=== PATIENT | male | born 1950 | race Caucasian/White ===

== ENCOUNTER 2019-04-18 21:40 | Inpatient (IN) ==
--- NOTE | 2019-04-18 22:10 | EKG Report ---
Test Performed on : 04/18/2019 10:00:37 PM Test Reason : sob Blood Pressure : / mmHG Vent. Rate : 066 BPM Atrial Rate : 267 BPM P-R Int : 000 ms QRS Dur : 098 ms QT Int : 442 ms P-R-T Axes : 000 032 103 degrees QTc Int : 463 ms Accelerated Junctional rhythm. Nonspecific ST and T wave abnormality Abnormal ECG When compared with ECG of 14-NOV-2015 11:56, Junctional rhythm. has replaced Sinus rhythm. Vent. rate has decreased BY 33 BPM Non-specific change in ST segment in Anterior leads Nonspecific T wave abnormality no longer evident in Inferior leads T wave inversion less evident in Lateral leads Unconfirmed Result
[2019-04-18] MEDS ORDERED: NS 1,000 ML IV ONE (22:30)
[2019-04-18] MEDS ORDERED: DILAUDID IV ONE ×2 (22:31→23:37)
[2019-04-18] MEDS ORDERED: ZOFRAN IV ONE (22:31)
[2019-04-18 22:45] LABS: BASO# 0.02 X1000 (0.0-0.2); BASO% 0.2 % (0.0-0.8); EOS# 0.03 X1000 (0.0-0.7); EOS% 0.3 % (0.0-10.0); HEMATOCRIT 35.4 % (42.0-52.0); HEMOGLOBIN 11.6 g/dL (14.0-18.0); IMM GRAN# 0.06 X1000 (0.0-0.04); IMM GRAN% 0.6 % (0.0-0.5); LYMPH# 0.74 X1000 (1.2-3.4); MCHC 32.8 g/dL (33-37); MCV 97.8 FL (81-99); MONO% 4.8 % (1.7-9.3); MPV 11.6 FL (7.4-10.4); NEUT# 9.16 X1000 (1.4-6.5); NEUT% 87.1 % (42.2-75.2); PLT 244 X1000 (130-400); RBC 3.62 XMIL (4.7-6.1); RDW 13.9 % (11.5-14.5); WBC 10.51 X1000 (4.8-10.8)
[2019-04-18 22:52] LABS: INR 0.99; PROTIME 13.2 Seconds (11.0-16.0)
[2019-04-18 22:53] LABS: PTT 30.8 Seconds (22.3-41.8)
--- NOTE | 2019-04-18 22:58 | PROVIDER DOCUMENTATION ---
HPI-General Adult - General Chief Complaint: Abdominal Pain Stated Complaint: ABDOMINAL PAIN AND SOB Time Seen by Provider: 04/18/19 21:45 Source: patient, family Allergies/Adverse Reactions: Patient Allergies Allergy/AdvReac Type Severity Reaction Status Date / Time metformin Allergy Unknown SWELLING Verified 04/18/19 22:16 rosuvastatin calcium * Allergy Unknown SWELLING Verified 04/18/19 22:16 [From Crestor] morphine AdvReac HEADACHE Verified 04/18/19 22:16 nitroglycerin AdvReac HEADACHE Verified 04/18/19 22:16 Home Medications: Home Medication List Medication Instructions Recorded Confirmed Last Taken Type Clopidogrel [Plavix] 75 mg PO DAILY 01/23/12 04/18/19 04/18/19 History Aspirin 81 mg PO DAILY #0 chewtab 06/27/15 04/18/19 04/18/19 Rx Insulin Lispro [Humalog Kwikpen See Protocol SQ AC + HS #90 06/27/15 04/18/19 04/18/19 Rx U-100] insuln.pen ATORVAstatin [Lipitor] 40 mg PO QHS #0 tablet 09/19/15 04/18/19 04/18/19 Rx Insulin Glargine [Lantus] 30 unit SUBQ BID 09/21/16 04/18/19 04/18/19 History Losartan/Hydrochlorothiazide 1 each PO DAILY 09/21/16 04/18/19 04/18/19 History [Hyzaar 100-25 Tablet] Gabapentin 300 mg PO 4XDAY 11/11/16 04/18/19 04/18/19 History Levothyroxine [Synthroid] 50 microgm PO DAILY 12/02/16 04/18/19 04/18/19 History Cyanocobalamin (Vitamin B-12) 1,000 mcg PO DAILY 08/29/17 04/18/19 04/18/19 History [Vitamin B12] Gabapentin 100 mg PO 4XDAY 08/29/17 04/18/19 04/18/19 History Tamsulosin [Flomax] 0.4 mg PO DAILY 08/29/17 04/18/19 04/18/19 History Bupropion X.l. [Wellbutrin Xl] 450 mg PO DAILY tablet 09/06/17 04/18/19 04/18/19 Rx Folic Acid 1 mg PO DAILY tablet 09/06/17 04/18/19 04/18/19 Rx Metoprolol Succinate E.r. [Toprol 50 mg PO DAILY tablet 09/06/17 04/18/19 04/18/19 Rx Xl] Amlodipine [Norvasc] 5 mg PO BID 04/18/19 04/18/19 04/18/19 History Docusate Sodium [Colace Clear] 50 mg PO QHS 04/18/19 04/18/19 04/18/19 History Isosorbide Mononitrate E.r. [Imdur] 20 mg PO QHS 04/18/19 04/18/19 04/18/19 History Omeprazole [Prilosec] 30 mg PO DAILY 04/18/19 04/18/19 04/18/19 History - History of Present Illness -Gen Adult Nature of Presenting Problems: Presents to the with complaints of abdominal pain, distension and bruising that started acutely this morning. Patient stated that he coughed and he felt something pop and since then he continued to have worsening pain, swelling and noticed the bruising. He does take plavix and ASA for extensive cardiac hx. Per family and patient he additionally has been complaining of worsening weakness and has been having a cough. He went to his Research And Development Researcher's office this week and was put on a zpack and given a dose of solumedrol in addition to his already chronic prednisone he takes. 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 They also noted that his sugars were higher. He denied any fevers. Review of Systems - Adult - REVIEW OF SYSTEMS - ADULT Constitutional: reports: see HPI Eyes: reports: no symptoms reported Ears, Nose, Mouth & Throat: reports: no symptoms reported Cardiovascular: reports: no symptoms reported Respiratory: reports: see HPI, cough, shortness of breath Gastrointestinal: reports: see HPI, abdominal pain. denies: constipation, diarrhea, nausea, vomiting Genitourinary: reports: see HPI, flank pain Musculoskeletal: reports: no symptoms reported Integumentary: reports: no symptoms reported Neurological: reports: no symptoms reported Psychiatric: reports: no symptoms reported Endocrine: reports: no symptoms reported Hematologic/Lymphatic: reports: no symptoms reported Allergic/Immunologic: reports: no symptoms reported All Other Systems: Reviewed and Negative Past History - Adult - PAST MEDICAL HISTORY-ADULT Review of Records: reports: Old Records Reviewed Major Childhood Illnesses: reports: denies history Cardiovascular: reports: cardiac disease, HTN, hyperlipidemia, ND Respiratory: reports: asthma, COPD, sleep apnea Gastrointestinal: reports: GERD Obstetrical/Gynecological: reports: denies history Genitourinary: reports: denies history Musculoskeletal: reports: denies history Neurological: reports: denies history Endocrine/Immune: reports: Diabetes Other Conditions: reports: denies history - PRIOR SURGERIES/PROCEDURES Surgical/Procedure History: reports: CABG, cardiac stent - IMMUNIZATION STATUS Childhood Immunizations: See Nurse Assessment Flu Vaccine: See Nurse Assessment - FAMILY HISTORY Family History: reviewed, not pertinent Physical Exam-General - PHYSICAL EXAM-ADULT Initial Vital Signs Reviewed: Yes - CONSTITUTIONAL General Appearance: appears well, alert, mild distress (uncomfortable appearing) - HEAD, EARS, NOSE, MOUTH & THROAT HENMT: normocephalic/atraumatic - NECK Neck: supple, normal inspection - RESPIRATORY Respiratory: chest non-tender, no respiratory distress, no accessory muscle use, decreased breath sounds (bilaterally). negative: accessory muscle use, crackles, wheezing - CARDIOVASCULAR Cardiovascular: normal peripheral pulses, regular rate, rhythm, no murmur - GASTROINTESTINAL (ABDOMEN) Abdominal Exam: normal bowel sounds, distended, other (diffuse ecchymosis, moderately tender, areas soft to touch and right flank/RLQ more firm to touch). negative: hernia - MUSCULOSKELETAL Back Exam: normal inspection Extremity: other (bilateral AKA) - SKIN Integumentary: normal color, warm/dry - NEUROLOGIC Neurologic: grossly normal - PSYCHIATRIC Psych/Mental Status: normal mood/affect, oriented x 3 Progress - PLAN OF CARE/RESULTS Progress/Plan/Lab Results: Vital Signs - 8 hr 04/18/19 21:45 Temperature 97.5 F L Pulse Rate 67 Respiratory Rate 18 Blood Pressure 185/72 O2 Sat by Pulse Oximetry 100 Laboratory Results - last 24 hr 04/18/19 04/18/19 22:05 22:05 WBC 10.51 RBC 3.62 L Hgb 11.6 L Hct 35.4 L MCV 97.8 MCH 32.0 H MCHC 32.8 L RDW Std Deviation 13.9 Plt Count 244 MPV 11.6 H Immature Gran % (Auto) 0.6 H Neut % (Auto) 87.1 H Lymph % (Auto) 7.0 L [place] % (Auto) 4.8 Eos % (Auto) 0.3 Baso % (Auto) 0.2 Immature Gran # (Auto) 0.06 H Neut # (Auto) 9.16 H Lymph # (Auto) 0.74 L [place] # (Auto) 0.50 Eos # (Auto) 0.03 Baso # (Auto) 0.02 PT 13.2 INR 0.99 PTT (Actin FS) 30.8 Orders Category Date Time Status Cardiac Monitoring DIRECTED Care 04/18/19 22:29 Active Finger Stick Blood Sugar (ED) DIRECTED Care 04/18/19 21:54 Active Nursing- Obtain EKG ONCE Care 04/18/19 22:29 Active CHEST-2 VIEWS [RAD] Stat Exams 04/18/19 22:[address] THORAX/ABD/PELVIS W/CON [CT] Stat Exams 04/18/19 22:30 Taken CBC WITH DIFF [HEME] Stat Lab 04/18/19 22:05 Completed COMPREHENSIVE METABOLIC PANEL [CHEM] Stat Lab 04/18/19 22:05 Received LACTATE, PLASMA [CHEM] Stat Lab 04/18/19 22:31 Uncollected LIPASE [CHEM] Stat Lab 04/18/19 22:05 Received PROTIME WITH INR [COAG] Stat Lab 04/18/19 22:05 Completed PTT [COAG] Stat Lab 04/18/19 22:05 Completed TROPONIN T HIGH SENSITIVITY Stat Lab 04/18/19 22:05 Received URINALYSIS W/POSS RFLX CULT [URINALYSIS] Stat Lab 04/18/19 22:54 Uncollected 0.9% Sodium Chloride Inj [Ns] 1,000 ml Med 04/18/19 22:30 Active IV 100 mls/hr Hydromorphone [Dilaudid] Med 04/18/19 22:31 Discontinued 1 mg IV NOW ONE Ondansetron [Zofran] Med 04/18/19 22:31 Discontinued 4 mg IV NOW ONE EKG [EKG] Stat Ther 04/18/19 21:54 Draft EKG [EKG] Stat Ther 04/18/19 22:29 Ordered Spoke to radiology who called critical CT showing rectus hematoma with acute extravasation but no acute bleeding in the abdomen. SPoke to Dr Sanders, general surgeon refrigeration engineering teacher who recommended trending H/H, hold anticoagulation. Result Diagrams: 04/19/19 03:48 01/22/20 22:05 - EKG 1 Time of EKG reading by physician:: 22:07 EKG Read and Signed by:: Kathryn Dan EKG Interpretation (*Must complete 3 of following elements*): Abnormal Rate: 66 Rhythm: NSR QRS: normal IA Interval: normal ST Wave: non-specific ST changes - CT/MRI 1 CT Study: Abdomen (right rectus hemtoma with bright contrast within the muscle consistent with acute extravasation, no acute intraperitoneal and retroperitoneal hemorrhage, no acute intrabd process, low density adrenal adenoma), Thorax (subtle airspace disease in the right middle lobe may represent atelectasis or PNA) - CONSULTS/PCP/HOSPITALIST Notification #1 *Consult/PCP/Hospitalist*: Dr Sanders Time Discussed: 23:45 Consult Disposition: other (Admit to hospitalist, will see patient in consult. NPO, and rpt H/H q6h, hold anticoagulation) #2 Consult: Dr Wagner Time Discussed: 23:55 Consult Disposition: Admit Departure - Departure Date of Disposition Decision: 04/18/19 Time of Disposition Decision: 23:45 DIAGNOSIS: Abdominal pain, Uncontrolled diabetes mellitus, Pneumonia Rectus sheath hematoma Qualifiers: Encounter type: initial encounter Qualified Code(s): S30.1XXA - Contusion of abdominal wall, initial encounter Disposition: ADMITTED INPATIENT 09 Certified Medical Emergency: Emergent Condition: Serious - Critical Care Note This patient required my direct & personal management of CC.: No Attestation - Physician/ RODRIGUEZ Attestation Patient care was provided by Advanced Practice Provider:: No The physician spent face to face time with patient:: Yes Advanced Practice Provider documentation review:: Supervising physician onsite and consulted in the evaluation and care of this patient. The physician did have a face to face encounter with the patient.
[2019-04-18 23:37] LABS: ALB/GLOB RATIO 1.8; ALBUMIN 3.6 g/dL (3.5-5.0); CALCIUM 9.1 mg/dL (8.8-10.2); CREATININE 1.2 mg/dL (0.7-1.2); POTASSIUM 4.8 mmol/L (3.5-5.1); TOTAL PROTEIN 5.6 g/dL (6.3-8.3)
[2019-04-18 23:54] LABS: TOTAL BILIRUBIN 0.29 mg/dL (0.20-1.00)
[2019-04-18] MEDS ORDERED: HUMULIN R IV ONE (23:57)
[2019-04-19] MEDS ORDERED: VANCOMYCIN 1 GM/NS 1 GM/250 ML IVPB IV SCH (00:30)
[2019-04-19 00:36] LABS: URINE SOURCE CLEAN CATCH
[2019-04-19 00:38] LABS: BILIRUBIN URINE NEGATIVE (NEGATIVE); BLOOD URINE NEGATIVE (NEGATIVE); COLOR YELLOW; GLUCOSE URINE >1000 mg/dL (NEGATIVE); KETONE URINE NEGATIVE (NEGATIVE); LEUKOCYTES URINE NEGATIVE (NEGATIVE); NITRITE URINE NEGATIVE (NEGATIVE); PROTEIN URINE 30 mg/dL (NEGATIVE); TURBIDITY URINE CLEAR (CLEAR); UR EPITHELIAL CELLS <10 /HPF (<10); URINE BACTERIA NEGATIVE /HPF; URINE RBC <10 /HPF (<10); URINE WBC <10 /HPF (<10); UROBILINOGEN URINE NORMAL (NORMAL)
[2019-04-19 01:05] LABS: SP GRAVITY URINE 1.015
[2019-04-19] MEDS: MAXIPIME 1 GM in NS 50 ML IV SCH ×3 (02:08→23:28)
--- NOTE | 2019-04-19 02:32 | HISTORY AND PHYSICAL ---
PRIMARY CARE PHYSICIAN: Ty Forrest MD. REASON FOR ADMISSION: Abdominal pain overnight. HISTORY OF PRESENT ILLNESS: Mr. Mark Martinez is a 68-year-old white male with past medical history of ischemic heart disease status post CABG and several stents, peripheral arterial disease status post bilateral endarterectomy, and subsequent bilateral AKA, uncontrolled type 2 diabetes with neuropathy, COPD, right-sided heart failure, achalasia, and history of tonsillar squamous cell cancer. He also has a recent history of OPDIVO induced pemphigoid skin disease for which the patient takes chronic doxycycline and steroids. The patient comes in today because he has been dealing with a dry cough and had seen Dr. Wolfe for this 3 days ago and was put on Zithromax and given 30 mg extra dose of steroids, Solu-Medrol. He reports that the cough has been protracted, nonproductive, but around 9 p.m. yesterday, he noticed that while he was having a round of his usual coughing spells, he felt a very sharp pop in the right upper quadrant area of his abdomen. He said the pain was so intense, it was doubled, that he had to catch himself. He then shortly noticed that there was a bulge forming in the right upper quadrant area, and subsequently he noticed that there was some bruising around that site. A few hours later he noticed bruising around his belt line area and his suprapubic area. He said the pain became more intense and was radiating to his back. The patient denies any bleeding from any orifice. He denies any chest pain or worsening of breathing. No antecedent polyuria or polydipsia. No focal neurological complaints. No other additional GI complaints. He says when he moves or coughs the pain is worse, when he keeps still the pain is better. He says the pain has improved since he received IV opioids in the ER. REVIEW OF SYSTEMS: Twelve system review was done, positive findings per the HPI. ALLERGIES: Crestor, amitriptyline, iron, metformin, questionable allergy to Neurontin, morphine when only taking with nitroglycerin. FAMILY HISTORY: Notable for coronary artery disease, type 2 diabetes in first- degree relatives. SOCIAL HISTORY: He smokes 1 pack a day. No alcohol or illicit drug use. SURGICAL HISTORY: Other than the aforementioned AKA, head and neck surgery, and CABG, stents, the patient has had cataract surgery. LABORATORY DATA: White count is 10,000, hemoglobin and hematocrit 11 and 35, platelets 244,000, with 87% neutrophils. Glucose is 511, sodium 134, BUN 26, creatinine 1.2. ProBNP 7000. Troponin is only 34. Lactate is 2.7. PTT is normal. CT of abdomen confirms right rectal sheath hematoma, and probable right middle lobe pneumonia versus atelectasis. PHYSICAL EXAMINATION: VITAL SIGNS: Blood pressure 160/67, heart rate 69, respirations 15, temperature is 97.7 degrees, he is 96% on room air. GENERAL: A chronically ill elderly male. He is in mild distress from his abdominal pain. He is alert and oriented to person and time with normal mood and affect. HEENT: Head is normocephalic, atraumatic. Eyes, JOSSELIN, EOMI. He is anicteric. Not pale. ENT, oropharynx exam is grossly normal. The patient is mildly pale for admission. Intraoral exam is grossly unremarkable. Some cyanosis. NECK: Supple. No visual JVD or thyromegaly noted. Carotid bruit was not checked. CHEST: Decreased entry in both lung arzate. Expiratory wheezes. CARDIOVASCULAR: First and second heart sounds heard. No gallops, murmurs or rubs. Rhythm is regular. ABDOMEN: Slightly protuberant, soft except in the right upper quadrant where there is an area of induration and slight bulging with a small area of ecchymosis. This area measures about 8 x 10 cm and is exquisitely tender. There is also bruising around his right belt line area and suprapubic area. There is mild diffuse tenderness in other areas, but no rebound or guarding appreciated. Bowel sounds are hypoactive. No mass or megaly could be appreciated. EXTREMITIES: The patient has bilateral AKA stumps with no evidence of skin breakdown. Distal pulses of his upper extremities are intact. Regular symmetrical. NEUROLOGICAL: No gross focal deficits. SKIN: Intact. No breakdown, lesion, erythema. Skin exam is grossly normal. ASSESSMENT: At this time is: 1. Rectus sheath hematoma. 2. Probable pneumonia. 3. Coronary artery disease. 4. Peripheral arterial disease. 5. Type 2 diabetes, uncontrolled. 6. Hypertension. 7. Bullous pemphigoid immunotherapy induced. 8. Chronic obstructive pulmonary disease.. 9. Hypertensive heart disease. PLAN: The patient does obviously have a clear-cut pneumonia; however, we will give the Maxipime to cover for enteric gram-negative pathogens, i.e. Pseudomonas. This is being that the patient has been exposed to doxycycline for prolonged periods which will cover atypicals and the usual community-acquired pathogens, and even some degree MRSA. We will start the patient's antitussive agents so as not to cause further expansion of the hematoma. We will hold antiplatelet therapy for a short while especially Plavix. Aspirin may be reintroduced at a suitable date with the stability of the hematoma. We will start the patient on IV fluid resuscitation in the interim, and consider CT scan of the abdomen much later in the day to determine if there is stability of the hematoma. Dr. Sanders was notified and will see the patient later today. We will also slowly increased the dose of the patient's Lantus, and start the patient on sliding scale. We may consider doing serial H Hs, but I will out defer to Dr. Forrest as to how frequent he wants to do this. cc: MD Ty Green MD MTDD
[2019-04-19] MEDS ORDERED: NS 1,000 ML IV SCH (03:34)
[2019-04-19] MEDS ORDERED: HYDROMET LIQUID PO ONE (03:34)
[2019-04-19] MEDS ORDERED: HYDROMET LIQUID PO PRN (03:34)
[2019-04-19] MEDS ORDERED: TYLENOL PO PRN (03:34)
[2019-04-19] MEDS: DILAUDID IV PRN ×3 (04:07→16:30)
[2019-04-19 04:09] LABS: HEMATOCRIT 27.8 % (42.0-52.0)
--- NOTE | 2019-04-19 05:21 | EKG Report ---
Test Performed on : 04/19/2019 05:10:56 AM Test Reason : abd pain Blood Pressure : / mmHG Vent. Rate : 053 BPM Atrial Rate : 053 BPM P-R Int : 152 ms QRS Dur : 096 ms QT Int : 486 ms P-R-T Axes : 064 031 101 degrees QTc Int : [address] & T wave abnormality, consider lateral ischemia Abnormal ECG When compared with ECG of 18-APR-2019 22:00, (Unconfirmed) Sinus rhythm. has replaced Junctional rhythm. Confirmed by Parveen JUAREZ, Sae Mi ([id number]) on 04/23/2019 5:52:52 PM
[2019-04-19 07:24] LABS: BASO# 0.01 X1000 (0.0-0.2); BASO% 0.1 % (0.0-0.8); EOS# 0.18 X1000 (0.0-0.7); EOS% 1.7 % (0.0-10.0); HEMATOCRIT 27.8 % (42.0-52.0); HEMOGLOBIN 8.9 g/dL (14.0-18.0); IMM GRAN# 0.08 X1000 (0.0-0.04); IMM GRAN% 0.8 % (0.0-0.5); LYMPH# 1.16 X1000 (1.2-3.4); LYMPH% 11.2 % (20.5-51.1); MCH 31.6 PG (27-31); MCV 98.6 FL (81-99); MONO# 0.72 X1000 (0.11-0.59); MONO% 6.9 % (1.7-9.3); MPV 11.7 FL (7.4-10.4); NEUT# 8.24 X1000 (1.4-6.5); NEUT% 79.3 % (42.2-75.2); PLT 196 X1000 (130-400); RBC 2.82 XMIL (4.7-6.1); RDW 13.8 % (11.5-14.5); WBC 10.39 X1000 (4.8-10.8)
[2019-04-19] MEDS: HUMALOG SUBQ SCH ×4 (07:48→21:22)
--- NOTE | 2019-04-19 07:49 | Diag Imaging Result Doc PS360 ---
EXAM: CT THORAX/ABD/PELVIS W/CON HISTORY: abdominal distention, ecchymoses, pain/tenderness TECHNIQUE: 1. CT chest with intravenous contrast 2. CT abdomen and pelvis with intravenous contrast COMPARISON: Abdomen and pelvis compared to 01/21/2017 FINDINGS: Chest: There are sternal wires. No cardiomegaly. No pleural effusions. No aortic aneurysm or dissection. Prominent atherosclerosis. No enlarged lymph nodes. No central pulmonary emboli. No consolidation. No bronchiectasis. No significant infiltrates. Abdomen and pelvis: The gallbladder is contracted. No calcified stones. Mild fatty infiltration of the liver. No splenomegaly. Normal pancreas and right adrenal gland. Stable 2.5 cm left adrenal nodule. There are bilateral small renal cysts in addition to a 5.0 cm left renal cyst. No hydronephrosis. No aortic aneurysm. Prominent atherosclerosis. No bowel obstruction. There is stool throughout the colon. No inflammation about the cecum. No abscess. The urinary bladder is distended and normal. Prostate is not enlarged. There is a lower abdominal right rectus hematoma measuring at least 4.1 x 5.7 x 13.2 cm. There is active extravasation within this. IMPRESSION: Chest: No acute abnormality Abdomen and pelvis: 1. Large right rectus muscle hematoma with acute extravasation. 4. Constipation 3. Renal cysts 4. Severe atherosclerosis 5. Mild fatty infiltration of the liver A preliminary report was given at 11:31 PM on 04/18/2019 This exam was performed using automated exposure control, adjustment of mA or kV according to patient size, and/or use of iterative reconstruction technique. Electronically signed by Danial Grace 04/19/2019 7:46 AM
[2019-04-19] MEDS: NORVASC PO SCH ×2 (08:17→21:21)
[2019-04-19] MEDS: HYDROCHLOROTHIAZIDE PO SCH (08:17)
[2019-04-19] MEDS: COZAAR PO SCH (08:17)
[2019-04-19] MEDS: TOPROL XL PO SCH (08:17)
[2019-04-19 08:18] LABS: CALCIUM 8.1 mg/dL (8.8-10.2); CREATININE 1.2 mg/dL (0.7-1.2); POTASSIUM 3.8 mmol/L (3.5-5.1)
[2019-04-19] MEDS ORDERED: CHLORASEPTIC SPRAY MT PRN (08:22)
[2019-04-19] MEDS ORDERED: PREDNISONE PO SCH (09:00)
[2019-04-19] MEDS: DUONEB (A & A) INH PRN (09:48)
[2019-04-19] MEDS: DUONEB (A & A) INH SCH ×5 (09:48→22:50)
[2019-04-19] MEDS: TESSALON PO SCH ×2 (10:09→16:16)
[2019-04-19] MEDS: NEURONTIN PO SCH ×4 (10:09→21:22)
[2019-04-19] MEDS: SYNTHROID PO SCH (10:09)
[2019-04-19] MEDS: WELLBUTRIN XL PO SCH (10:09)
[2019-04-19] MEDS: PRILOSEC PO SCH (10:09)
[2019-04-19] MEDS: FLOMAX PO SCH (10:10)
[2019-04-19] MEDS: LANTUS INSULIN SUBQ SCH ×2 (10:10→21:23)
[2019-04-19 10:44] LABS: HEMATOCRIT 27.6 % (42.0-52.0)
[2019-04-19 15:58] LABS: HEMOGLOBIN 8.8 g/dL (14.0-18.0)
[2019-04-19] MEDS: SOLU-MEDROL IV SCH (18:46)
[2019-04-19] MEDS ORDERED: IMDUR PO SCH (21:00)
[2019-04-19] MEDS: LIPITOR PO SCH (21:22)
[2019-04-19] MEDS: DOXYCYCLINE PO SCH (21:22)
--- NOTE | 2019-04-19 21:43 | GENERAL SURGERY CONSULTATION ---
DATE: 04/19/2019 REASON FOR CONSULTATION: Right-sided rectus sheath hematoma. CHIEF COMPLAINT: Abdominal pain. HISTORY OF PRESENT ILLNESS: This is a 68-year-old gentleman with multiple medical issues. He is a severe vasculopath. He has had bilateral carotid endarterectomies, bilateral above knee amputations. He has had coronary artery bypass grafting and coronary stents since his bypass graft. He is on aspirin and Plavix chronically. He has had quite a productive cough as he does have COPD, was coughing yesterday evening, felt a "pop" and developed swelling and pain in his right side of his abdomen extending around to his flank. He came to the emergency department where CT scan was obtained that showed a rectus sheath hematoma with possible extravasation. I was consulted. He was hemodynamically stable. MEDICAL HISTORY: As noted in his HPI. I believe he has had strokes. I believe he has also had myocardial infarction and hypertension. He did smoke, COPD, peripheral vascular disease. Head and neck cancer undergoing chemotherapy with Opdivo. SURGICAL HISTORY: As noted in his HPI. He has had a PEG tube and subsequent gastric cutaneous fistula takedown. SOCIAL HISTORY: He does smoke a pack a day. No alcohol. No drugs. His daughter is a nurse. FAMILY HISTORY: Reviewed and noncontributory other than coronary artery disease. REVIEW OF SYSTEMS: A 10-point review of systems is negative other than what is mentioned in HPI. PHYSICAL EXAMINATION: Vital signs: He is afebrile. He had no tachycardia. Pulse in fact is down to 50s, blood pressure 119/42, oxygen saturation 100% on 2 L. General: He is alert. Cardiovascular: Normal rate. Pulmonary: No increased work of breathing but does have rhonchi and coarse cough. Abdomen: Soft. There is tenderness along the right rectus sheath with ecchymosis, some fullness but no discrete fluid collection. Psychiatric: Appropriate affect. Neurologic: No gross deficits. Peripheral vascular: Bilateral lower extremity above-knee amputations. Lymphatic: I do not feel any cervical adenopathy. LABORATORY DATA: White count 10, hematocrit 35 initially. This plateaued at 27 x2 checks. Creatinine is 1.2. Glucose has been as high as 500, lactate is 2.7, lipase is 115. IMAGING: I reviewed his CT scan. ASSESSMENT AND PLAN: This is a gentleman with a rectus sheath hematoma spontaneous in the setting of aspirin and Plavix. He seems to be hemodynamically stable, but I suspect that this is self- limited and is most likely stopped. We will observe his hematocrits through the course of the day today and on exam he may ultimately require evacuation of the hematoma to promote resolution in the future. I discussed this with his daughter who is a nurse practitioner in our emergency department. She understands and consents. Okay for him to eat. I will follow along surgically, but no plans for intervention. cc: MD Ty Nunez MD
[2019-04-19] MEDS: PERICOLACE PO SCH (21:46)
[2019-04-19] MEDS: ISMO PO SCH (21:46)
[2019-04-19] MEDS: MIRALAX PO SCH (21:46)
[2019-04-19 21:59] LABS: HEMATOCRIT 28.6 % (42.0-52.0)
--- NOTE | 2019-04-20 02:47 | PROGRESS NOTE ---
DATE: 04/19/2019 SUBJECTIVE: The patient was admitted in the pharmacy aide hours with intractable right upper quadrant pain. He had previously been treated for an upper respiratory tract infection with azithromycin and a dose of steroid. Upon evaluation in the emergency department, full evaluation was pursued. CT scan of the chest, abdomen and pelvis revealed a large right rectus muscle hematoma with acute extravasation. No evidence of significant pneumonia was identified. The patient was admitted to the hospital for pain control. Antibiotics were continued for a presumed upper respiratory tract infection/bronchitis. Upon my arrival this morning, patient continued to have pain, although this was better controlled. He continued to have some difficulty with breathing. Examination revealed significant wheezing. The patient's home dose of prednisone 20 mg daily was resumed. Bronchodilators were initiated. This evening, upon my arrival, unfortunately patient's pulmonary condition remains marginal. He has diffuse wheezing as well as shortness of breath. He does continue to have significant pain in the area of the rectus sheath hematoma. He has required multiple doses of Dilaudid to maintain adequate control. There has been no evidence of fevers, chills, nausea, vomiting, or chest discomfort. OBJECTIVE: Vital signs: T-max 98.2 degrees, heart rate 55 to 64, respirations 14 to 20, blood pressure 105-135/41-64. General: No acute distress. Cardiovascular: Regular rate and rhythm. No significant murmurs, rubs, or gallops. Pulmonary: Diffuse wheezing bilaterally. Compromised air movement. Abdomen: Soft, significant tenderness in the right upper quadrant at the site of the rectus sheath hematoma. No guarding. Positive bowel sounds. Extremities: The patient has bilateral [id number] amputations. Dermatologic: Evaluation reveals an ecchymosis to the right upper quadrant. LABORATORY DATA: White blood cell count 10.39, hemoglobin 8.8, hematocrit 27.0. Platelet count a 196,000. Sodium 136, potassium 3.8, chloride 102, bicarb 31, BUN 25, creatinine 1.2. Glucose 209, calcium 8.1. ASSESSMENT AND PLAN: 1. Rectus sheath hematoma -- the patient continues to have considerable pain. He is requiring Dilaudid on a frequent basis to maintain adequate control. Hemoglobin and hematocrit have dropped considerably. Dr. Sanders with General Surgery was consulted, but no acute intervention was deemed warranted. We will recheck a hemoglobin and hematocrit in the a.m. For now, we will hold aspirin and Plavix. 2. Acute exacerbation of chronic obstructive pulmonary disease -- as above, I attempted to resume oral steroids and bronchodilators this morning. Unfortunately, despite intervention, he continues to have considerable wheezing. We will start IV Solu-Medrol. We will continue cefepime. We will encourage incentive spirometry and aspiration precautions. We will continue bronchodilators. 3. Coronary artery disease -- patient has advanced disease. We will continue patient's optimized medical management with exception of aspirin and Plavix. I discussed this in detail with patient's family. At this point, with his large rectus sheath hematoma and extreme pain, I feel the risk of continuing aspirin and Plavix outweighs the benefits. We will plan to resume this once able to safely. 4. Peripheral artery disease -- patient has significant disease. He is status post bilateral above- the-knee amputations. We will remain aware. We will hold antiplatelet agents, as described above, secondary to rectus sheath hematoma. 5. Type 2 diabetes -- the patient has longstanding, poorly control disease. We will continue his home regimen. We will add sliding scale insulin. We will remain aware that this blood sugars will likely increase in the setting of steroids. 6. Hypertension -- we will continue patient on home medications. 7. Bullous pemphigoid -- this is a recent diagnosis. He is currently being treated with prednisone and doxycycline therapy. We will continue doxycycline. We will transition patient from prednisone to Solu-Medrol. 8. Hyperlipidemia -- we will continue patient on atorvastatin therapy. 9. Hypothyroidism -- we will continue patient on levothyroxine replacement. 10. Constipation -- we will initiate MiraLAX and Kristen-Colace. Patient is at risk for increasing symptoms associated with narcotic use. 11. Disposition. At this point, patient continues to require halfway care in the hospital setting. With significant pain to his abdomen with any movement and the fact the patient is a bilateral amputee, patient may require physical therapy and possibly rehabilitation at discharge. cc: Ty Forrest MD MTDD
[2019-04-20] MEDS: TESSALON PO SCH ×4 (03:15→20:26)
[2019-04-20] MEDS: SOLU-MEDROL IV SCH ×3 (03:21→20:41)
[2019-04-20] MEDS: DUONEB (A & A) INH SCH ×6 (03:25→23:16)
[2019-04-20] MEDS: PRILOSEC PO SCH (06:09)
[2019-04-20] MEDS: SYNTHROID PO SCH (06:09)
[2019-04-20] MEDS: HUMALOG SUBQ SCH ×5 (06:27→20:28)
[2019-04-20] MEDS: COZAAR PO SCH (09:52)
[2019-04-20] MEDS: NORVASC PO SCH ×2 (09:53→20:41)
[2019-04-20] MEDS: TOPROL XL PO SCH (09:54)
[2019-04-20] MEDS: HYDROCHLOROTHIAZIDE PO SCH (09:56)
[2019-04-20] MEDS: PERICOLACE PO SCH ×2 (09:57→20:26)
[2019-04-20] MEDS: FOLIC ACID PO SCH (09:57)
[2019-04-20] MEDS: WELLBUTRIN XL PO SCH (09:57)
[2019-04-20] MEDS: VITAMIN B-12 PO SCH (09:57)
[2019-04-20] MEDS: FLOMAX PO SCH (09:58)
[2019-04-20] MEDS: DOXYCYCLINE PO SCH ×2 (09:58→20:26)
[2019-04-20] MEDS: MIRALAX PO SCH ×2 (10:02→20:27)
[2019-04-20] MEDS: MYCOSTATIN SUSP PO SCH ×4 (10:09→20:26)
[2019-04-20] MEDS: NEURONTIN PO SCH ×2 (10:10→20:26)
[2019-04-20] MEDS: NORCO-7.5 PO PRN ×3 (10:58→23:09)
[2019-04-20] MEDS: LANTUS INSULIN SUBQ SCH ×2 (11:26→20:26)
[2019-04-20] MEDS: MAXIPIME 1 GM in NS 50 ML IV SCH ×2 (11:57→23:43)
[2019-04-20] MEDS: DILAUDID IV PRN ×2 (16:35→23:43)
[2019-04-20 17:16] LABS: HEMATOCRIT 26.4 % (42.0-52.0); HEMOGLOBIN 8.6 g/dL (14.0-18.0)
[2019-04-20] MEDS ORDERED: DILAUDID IV ONE (17:33)
--- NOTE | 2019-04-20 20:05 | PROGRESS NOTE ---
DATE: 04/20/2019 SUBJECTIVE: Upon my arrival this morning, patient had just attempted to eat breakfast. Upon doing so, patient stated he had a "muscle spasm" in his posterior pharynx. The patient does note having considerable anxiety associated with this. He denied shortness of breath, palpitations, nausea, vomiting, or chest discomfort. Interestingly, by the end of our conversation he was asking for more food. The patient was instructed to slowly re-present food starting with Glucerna. Throughout the morning, patient did quite well. He worked with physical therapy. His abdominal discomfort remained very well controlled. His posterior pharyngeal "muscle spasm" had improved. Prior to my arrival this evening at approximately 4:45, patient developed considerable recurrence of his abdominal discomfort. The pain was located at the identical site of his acute pain upon admission. The patient described the pain as greater than 10/10. He was provided a dose of Dilaudid with modest improvement. Upon my arrival, patient was lying in bed with considerable pain. During our discussion, he suggested several morbid thoughts. The patient's daughter was contacted. Vital signs were reperformed which returned acceptable. Hemoglobin, hematocrit appeared to be reasonably stable from this morning as well. The patient's daughter was contacted and further discussion was held. A repeat dose of Dilaudid was provided. The patient's symptoms are better controlled, although he continues to have considerable pain. He denies fevers, chills, significant shortness of breath, or chest discomfort at present time. OBJECTIVE: T-max 98.7 degrees, heart rate 68 to 91, respirations 16 to 20, blood pressure 108 to 158 over 36 to 50.General: Chronically ill appearing, moderate distress secondary to pain. Cardiovascular: Regular rate and rhythm. No significant murmurs, rubs, or gallops. Pulmonary: Intermittent wheezing, improved from this morning. Abdomen: Exquisitely tender in the right upper quadrant. No significant rebound or guarding. No peritoneal signs. Positive bowel sounds. Extremities: Patient is a bilateral amputee. Dermatologic: Evaluation reveals a large, spreading ecchymosis to the abdomen in the periumbilical region extending to the right flank and lumbar spine. LABORATORY DATA: White blood cell count 10.39, hemoglobin 9.0, hematocrit 28.6, platelet count 196,000. Sodium 136, potassium 3.8, chloride 102, bicarb 31, BUN 25, creatinine 1.2, glucose 297,000. ASSESSMENT AND PLAN: 1. Rectus sheath hematoma-I suspect patient had stabilization of this hematoma during the day today, but with increased activity, this was disrupted. Upon doing so, patient developed recurrent excruciating pain. The patient has been treated with 2 doses of Dilaudid. His vital signs remain stable. At this point, because of his considerable pain, I do not feel he would tolerate transfer to CT scan for repeat evaluation. I discussed this in detail with patient and with patient's daughter. We will follow hemoglobin and hematocrit evaluations throughout the night. We will transfuse as necessary. We will increase the frequency of his Dilaudid to 1 mg every 2 hours as needed. We will continue to hold aspirin and Plavix. 2. Acute exacerbation of chronic obstructive pulmonary disease-from yesterday to today, his pulmonary status has improved considerably. He does, however, continue to have intermittent wheezing bilaterally. For now, we will continue his current medical regimen. We will consider decreasing Solu-Medrol in the a.m. We will encourage incentive spirometry and aspiration precautions. 3. Coronary artery disease-patient has advanced disease. He is treated with optimized medical management with exception of holding his aspirin and Plavix. I discussed this in detail with patient and with patient's family. At this point, the risk of continuing aspirin and Plavix outweighs the benefits. This does, however, increase his cardiac and peripheral vascular risk. 4. Peripheral vascular disease-patient is status post bilateral [id number] amputations. As above, we will continue to hold antiplatelet agents secondary to his acute bleeding. We will remain aware. 5. Type 2 diabetes-patient has longstanding, poorly control disease. Blood sugars have been more elevated than baseline secondary to steroid use. We will increase his sliding scale. We will follow this. 6. Hypertension-blood pressure is slightly elevated at present time secondary to pain. We will continue his home regimen. 7. Bullous pemphigoid-the patient is followed by Dr. Padron. He is treated with prednisone and doxycycline therapy as an outpatient. We will continue doxycycline as an inpatient, but he has been transitioned to Solu-Medrol while in the hospital. 8. Hyperlipidemia-we will continue patient on atorvastatin therapy. 9. Hypothyroidism-we will continue levothyroxine replacement. 10. Constipation-yesterday, we initiated MiraLAX and Kristen-Colace therapy. We will follow this. Patient is at risk for increasing symptoms associated with narcotic use. 11. Disposition-at this point, patient continues to require usp care in a hospital setting. We will plan discharge home or to rehabilitation once appropriate. 12. Code status-I discussed case in detail with patient's family. He is a DNR level 1. cc: Ty Forrest MD
[2019-04-20] MEDS: LIPITOR PO SCH (20:26)
[2019-04-20] MEDS: ISMO PO SCH (20:41)
[2019-04-20 21:02] LABS: HEMATOCRIT 28.2 % (42.0-52.0)
--- NOTE | 2019-04-20 22:11 | GENERAL SURGERY PROGRESS NOTE ---
DATE: 04/20/2019 SUBJECTIVE: He seemed to look confused but he is doing okay. He has some pain in the right side of his abdomen. No fevers. No tachycardia. Blood pressure 131/50. OBJECTIVE: In general he is alert. The abdomen is soft. There is stable bruising with some induration but no change from yesterday. Hematocrits have been stable in the 27 to 28 range. Glucoses are better. ASSESSMENT AND PLAN: This is a 68-year-old gentleman, vasculopath, on aspirin, Plavix, spontaneous rectus sheath hematoma. This seems to have tamponaded. I do not suspect any ongoing bleeding. Doubtful he will require drainage of the hematoma. I do agree with holding his antiplatelet therapy and starting back first at least early next week with the aspirin and maybe waiting another week for the Plavix, but this is not without possible issue given his vascular disease, although none of his stents are within the year and he has had no strokes since his endarterectomies. We will follow along. cc: MD Ty Nunez MD
[2019-04-21] MEDS: DUONEB (A & A) INH SCH ×5 (03:49→23:36)
[2019-04-21] MEDS: SOLU-MEDROL IV SCH ×2 (04:35→18:53)
[2019-04-21] MEDS: DILAUDID IV PRN ×6 (04:35→22:35)
[2019-04-21] MEDS: SYNTHROID PO SCH (06:21)
[2019-04-21] MEDS: PRILOSEC PO SCH (06:21)
[2019-04-21] MEDS: HUMALOG SUBQ SCH ×4 (06:27→21:04)
[2019-04-21 07:40] LABS: BASO# 0.01 X1000 (0.0-0.2); EOS# 0.07 X1000 (0.0-0.7); EOS% 0.3 % (0.0-10.0); HEMATOCRIT 27.7 % (42.0-52.0); HEMOGLOBIN 8.8 g/dL (14.0-18.0); IMM GRAN# 0.12 X1000 (0.0-0.04); IMM GRAN% 0.6 % (0.0-0.5); LYMPH# 0.48 X1000 (1.2-3.4); LYMPH% 2.4 % (20.5-51.1); MCH 31.5 PG (27-31); MCHC 31.8 g/dL (33-37); MCV 99.3 FL (81-99); MONO# 0.77 X1000 (0.11-0.59); MONO% 3.8 % (1.7-9.3); MPV 11.7 FL (7.4-10.4); NEUT# 18.65 X1000 (1.4-6.5); NEUT% 92.9 % (42.2-75.2); PLT 225 X1000 (130-400); RBC 2.79 XMIL (4.7-6.1); RDW 14.4 % (11.5-14.5)
[2019-04-21 08:21] LABS: ALB/GLOB RATIO 1.4; ALBUMIN 3.2 g/dL (3.5-5.0); CALCIUM 9.5 mg/dL (8.8-10.2); CREATININE 1.6 mg/dL (0.7-1.2); POTASSIUM 4.5 mmol/L (3.5-5.1); TOTAL BILIRUBIN 0.46 mg/dL (0.20-1.00); TOTAL PROTEIN 5.5 g/dL (6.3-8.3)
[2019-04-21] MEDS: DOXYCYCLINE PO SCH ×2 (08:48→22:01)
[2019-04-21] MEDS: MYCOSTATIN SUSP PO SCH ×4 (08:48→22:01)
[2019-04-21] MEDS: MIRALAX PO SCH ×2 (08:48→22:01)
[2019-04-21] MEDS: WELLBUTRIN XL PO SCH (08:49)
[2019-04-21] MEDS: VITAMIN B-12 PO SCH (08:49)
[2019-04-21] MEDS: TOPROL XL PO SCH (08:49)
[2019-04-21] MEDS: TESSALON PO SCH ×3 (08:49→18:53)
[2019-04-21] MEDS: COZAAR PO SCH (08:49)
[2019-04-21] MEDS: PERICOLACE PO SCH ×2 (08:49→22:01)
[2019-04-21] MEDS: HYDROCHLOROTHIAZIDE PO SCH (08:49)
[2019-04-21] MEDS: NEURONTIN PO SCH (08:50)
[2019-04-21] MEDS: NORVASC PO SCH ×2 (08:50→22:01)
[2019-04-21] MEDS: FOLIC ACID PO SCH (08:50)
[2019-04-21] MEDS: LANTUS INSULIN SUBQ SCH ×2 (08:50→22:02)
[2019-04-21] MEDS: FLOMAX PO SCH (08:50)
[2019-04-21 09:15] LABS: ANISOCYTOSIS 1+; HYPOCHROM 1+; LYMPHS 3 % (21-51); MONO 5 % (1-9); SEGS 91 % (42-75)
--- NOTE | 2019-04-21 12:44 | PROGRESS NOTE ---
DATE: 04/21/2019 Mr. Martinez was admitted to [facility] with an acute chronic obstructive pulmonary disease exacerbation. Clinically, he continues to improve slowly. He is breathing more comfortably. O2 saturations are ranging from 96% to 98% on 2 L of O2 per nasal cannula. He continues with intermittent fits of coughing, but his wheezing has improved significantly. There does not appear to be any increased work of breathing or respiratory distress. He does have a large rectus sheath hematoma. He is still requiring pain medicine with Dilaudid or [place]. His blood counts remained stable. His hemoglobin and hematocrit were 9.0 and 28.2 yesterday. This morning, his hemoglobin and hematocrit were 8.8 and [address] A previous CT scan of the abdomen and pelvis demonstrated a large right rectus muscle hematoma. There did not appear to be any retroperitoneal bleeding at that time. OBJECTIVE: Vital Signs: Temperature 98.0 degrees, pulse 75, respirations 20, BP 131/45. CV: Regular rate and rhythm. Lungs: Scattered rhonchi. I did not really appreciate any significant wheezing. I appreciate air movement in all lung arzate. Abdomen: He has significant tenderness in the right upper quadrant and umbilical region. There is no rebound or guarding. He has good bowel sounds. Extremities: He does have a large hematoma in the periumbilical region extending to the right lateral abdominal wall and toward the lumbar spine. ASSESSMENT AND PLAN: 1. Rectus sheath hematoma. There does not appear to be any evidence of additional bleeding at this time. His blood counts are stable. We will continue to hold the aspirin and Plavix and monitor his blood counts on a daily basis. We will continue Dilaudid and [place] as needed for pain. 2. Acute chronic obstructive pulmonary disease exacerbation. Clinically he is better. We will continue supplemental O2, DuoNeb nebulizer treatments and I will reduce the dosage of methylprednisolone to 40 mg IV q.12 hours. cc: MD Ty Hurt MD
--- NOTE | 2019-04-21 12:46 | PROGRESS NOTE ---
DATE: 04/21/2019 SUMMARY: Mr. Mark Martinez is a patient of Dr. 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 He has bilateral amputees. He is admitted with rectus hematoma. His anticoagulation has been stopped and we are treating this rectus hematoma conservatively. He does have bruising involving his right abdomen, back into his right flank. His hematocrit has been stable since 04/19/2019 at about 28%. He still has pain in that area. Certainly we want to try to treat this conservatively because any surgical intervention is very difficult. cc: MD Ty Raines MD
[2019-04-21] MEDS: NORCO-7.5 PO PRN (13:58)
[2019-04-21] MEDS: MAXIPIME 1 GM in NS 50 ML IV SCH (13:59)
[2019-04-21] MEDS: ISMO PO SCH (22:01)
[2019-04-21] MEDS: LIPITOR PO SCH (22:02)
[2019-04-22] MEDS: NEURONTIN PO SCH ×2 (00:55→08:49)
[2019-04-22] MEDS: DILAUDID IV PRN ×9 (01:15→23:05)
[2019-04-22] MEDS: MAXIPIME 1 GM in NS 50 ML IV SCH ×3 (01:42→23:52)
[2019-04-22] MEDS: DUONEB (A & A) INH SCH ×5 (03:19→16:56)
[2019-04-22] MEDS: SYNTHROID PO SCH ×2 (05:42→07:44)
[2019-04-22] MEDS: PRILOSEC PO SCH ×2 (05:42→07:44)
[2019-04-22] MEDS: SOLU-MEDROL IV SCH ×2 (05:42→18:20)
[2019-04-22] MEDS: NORCO-7.5 PO PRN ×2 (05:57→11:29)
[2019-04-22] MEDS: HUMALOG SUBQ SCH ×4 (07:45→20:40)
[2019-04-22] MEDS: MYCOSTATIN SUSP PO SCH ×4 (08:47→20:40)
[2019-04-22] MEDS: DOXYCYCLINE PO SCH ×2 (08:47→20:39)
[2019-04-22] MEDS: FOLIC ACID PO SCH (08:47)
[2019-04-22] MEDS: NORVASC PO SCH ×2 (08:48→20:40)
[2019-04-22] MEDS: COZAAR PO SCH (08:48)
[2019-04-22] MEDS: TOPROL XL PO SCH (08:48)
[2019-04-22] MEDS: WELLBUTRIN XL PO SCH (08:48)
[2019-04-22] MEDS: HYDROCHLOROTHIAZIDE PO SCH (08:48)
[2019-04-22] MEDS: TESSALON PO SCH ×3 (08:49→18:20)
[2019-04-22] MEDS: PERICOLACE PO SCH (08:49)
[2019-04-22] MEDS: MIRALAX PO SCH ×2 (08:49→20:40)
[2019-04-22] MEDS: FLOMAX PO SCH (08:49)
[2019-04-22] MEDS: VITAMIN B-12 PO SCH (08:49)
[2019-04-22] MEDS: LANTUS INSULIN SUBQ SCH ×2 (08:50→20:40)
--- NOTE | 2019-04-22 09:41 | PROGRESS NOTE ---
DATE: 04/22/2019 SUBJECTIVE: Mr. Martinez was admitted to [facility] with an acute COPD exacerbation. Clinically, he continues to improve. He has a minimal cough. He is breathing comfortably. O2 saturations are 94 to 99 percent on 2 L of O2. He has improved aeration of his lungs on examination. We were able to reduce the steroids yesterday. He does have a rectus sheath hematoma. He is still having some abdominal discomfort, particularly when he coughs or moves. He reports that the Dilaudid helps initially but tends to wear off. He has also been getting hydrocodone as needed. OBJECTIVE: Temperature 97.9 degrees, pulse 76, respirations 16, BP 142/49. CV: Regular rate and rhythm. Lungs: There is no wheezing. He does have scattered rhonchi. Abdomen: He still has tenderness in the right upper quadrant and umbilical region. No rebound or guarding. ASSESSMENT AND PLAN: 1. Acute chronic obstructive pulmonary disease exacerbation. Clinically, he continues to improve. We will continue DuoNeb nebulizer treatments and titrate off the steroids as indicated. 2. Rectus hematoma. We will continue to hold aspirin and Plavix. We will recheck his hemoglobin and hematocrit this morning. Certainly, we want to try to avoid surgery as he would be very high risk given his multiple chronic medical issues. cc: MD Ty Hurt MD
[2019-04-22 11:02] LABS: HEMATOCRIT 28.7 % (42.0-52.0); HEMOGLOBIN 9.1 g/dL (14.0-18.0)
[2019-04-22] MEDS: ISMO PO SCH (20:39)
[2019-04-22] MEDS: LIPITOR PO SCH (20:40)
[2019-04-22] MEDS: ZOFRAN IV PRN (23:05)
[2019-04-23] MEDS: DUONEB (A & A) INH SCH ×6 (02:59→22:53)
[2019-04-23] MEDS: SOLU-MEDROL IV SCH ×2 (05:49→15:25)
[2019-04-23] MEDS ORDERED: D50W SYRINGE IV ONE (07:14)
--- NOTE | 2019-04-23 08:23 | EKG Report ---
Test Performed on : 04/23/2019 08:13:14 AM Test Reason : decrease LOC Blood Pressure : / mmHG Vent. Rate : 073 BPM Atrial Rate : 073 BPM P-R Int : 138 ms QRS Dur : 100 ms QT Int : 408 ms P-R-T Axes : 056 058 158 degrees QTc Int : 449 ms Normal sinus rhythm. ST & T wave abnormality, consider inferolateral ischemia Abnormal ECG When compared with ECG of 19-APR-2019 05:10, (Unconfirmed) Non-specific change in ST segment in Inferior leads T wave inversion now evident in Inferior leads T wave inversion now evident in Lateral leads Confirmed by Parveen JUAREZ, Sae Mi ([id number]) on 04/23/2019 6:02:22 PM
--- NOTE | 2019-04-23 08:26 | Diag Imaging Result Doc PS360 ---
EXAM: CHEST-PORTABLE 04/23/2019 HISTORY: acute respiratory change TECHNIQUE: AP portable upright at 0812 COMMENT: There are ill-defined opacities present in the right parahilar upper lobe and the left lower lobe. This is worse than on 05/22/2018. The inspiration is less optimal. IMPRESSION: Bilateral bronchopneumonia and/or pulmonary edema. Electronically signed by Dhruv Lopez 04/23/2019 8:23 AM
[2019-04-23] MEDS ORDERED: LASIX IV ONE (08:32)
[2019-04-23] MEDS ORDERED: SOLU-MEDROL IV ONE (08:32)
[2019-04-23 08:58] LABS: BASO# 0.02 X1000 (0.0-0.2); BASO% 0.1 % (0.0-0.8); HEMATOCRIT 33.3 % (42.0-52.0); HEMOGLOBIN 10.6 g/dL (14.0-18.0); IMM GRAN# 0.14 X1000 (0.0-0.04); IMM GRAN% 0.7 % (0.0-0.5); LYMPH# 0.47 X1000 (1.2-3.4); LYMPH% 2.2 % (20.5-51.1); MCH 31.5 PG (27-31); MCHC 31.8 g/dL (33-37); MCV 98.8 FL (81-99); MONO# 0.92 X1000 (0.11-0.59); MONO% 4.3 % (1.7-9.3); MPV 11.3 FL (7.4-10.4); NEUT# 19.69 X1000 (1.4-6.5); NEUT% 92.7 % (42.2-75.2); PLT 263 X1000 (130-400); RBC 3.37 XMIL (4.7-6.1); RDW 14.4 % (11.5-14.5); WBC 21.24 X1000 (4.8-10.8)
[2019-04-23] MEDS: ZOSYN 3.375 GM in NS 50 ML IV SCH ×3 (09:07→23:08)
[2019-04-23] MEDS: PERICOLACE PO SCH ×4 (09:08→23:19)
[2019-04-23 09:13] LABS: CALCIUM 10.1 mg/dL (8.8-10.2); CREATININE 1.5 mg/dL (0.7-1.2); POTASSIUM 4.6 mmol/L (3.5-5.1)
[2019-04-23] MEDS: TOPROL XL PO SCH (10:18)
[2019-04-23] MEDS: MYCOSTATIN SUSP PO SCH ×4 (10:18→23:09)
[2019-04-23] MEDS: DILAUDID IV PRN ×4 (10:18→23:07)
[2019-04-23] MEDS: MIRALAX PO SCH ×2 (10:18→23:09)
[2019-04-23] MEDS: COZAAR PO SCH (10:18)
[2019-04-23] MEDS: LANTUS INSULIN SUBQ SCH (10:19)
[2019-04-23] MEDS: DOXYCYCLINE PO SCH ×2 (10:19→23:08)
[2019-04-23] MEDS: HYDROCHLOROTHIAZIDE PO SCH (10:19)
[2019-04-23] MEDS: NORVASC PO SCH ×2 (10:19→23:08)
[2019-04-23] MEDS: HUMALOG SUBQ SCH ×2 (11:55→16:30)
[2019-04-23] MEDS: PRILOSEC PO SCH (11:56)
[2019-04-23] MEDS: WELLBUTRIN XL PO SCH (11:57)
[2019-04-23] MEDS: NEURONTIN PO SCH ×3 (11:58→23:25)
[2019-04-23] MEDS: TESSALON PO SCH ×3 (11:58→16:31)
[2019-04-23] MEDS: VITAMIN B-12 PO SCH (11:58)
[2019-04-23] MEDS: FLOMAX PO SCH (11:59)
[2019-04-23] MEDS: SYNTHROID PO SCH (11:59)
[2019-04-23] MEDS: FOLIC ACID PO SCH (11:59)
[2019-04-23] MEDS: ZOFRAN IV PRN ×2 (15:40→20:39)
--- NOTE | 2019-04-23 21:37 | PROGRESS NOTE ---
DATE: 04/23/2019 SUBJECTIVE: The events of the weekend were reviewed. In summary, patient's pulmonary condition demonstrated improvement. Steroids were decreased. Abdominal discomfort remained present, but reasonably stable. Examination has revealed further discoloration with a large ecchymosis secondary to his rectus hematoma. Prior to my arrival this morning, I was contacted in regards to an episode of hypoglycemia. An amp of D50 was provided. With this, patient did have some improvement in his mental status, although significant shortness of breath soon followed. The patient was unable to talk during this episode secondary to retropharyngeal and throat pain. He had profuse persistent coughing, intermittently productive of a purulent sputum. While unable to talk, patient consistently pointed toward his posterior pharynx suggesting obstructive symptoms. There was no stridor present. No hypoxia was identified. Chest x-ray was performed which revealed bronchopneumonia versus edema. Laboratory data returned with a normal CK level and slightly elevated troponin. Patient was provided a dose of IV Lasix and an extra dose of IV Solu- Medrol. With these treatments, patient's overall condition slowly improved. Throughout the day, patient did reasonably well. He continued to have considerable pain at his right upper and lower abdomen. Shortness of breath however had decreased. This evening patient is much more interactive. He is talking freely without pain or limitations. He continues to have considerable pain as well as some intermittent shortness of breath. There has been no evidence of fevers, chills, or nausea. He has had an episode of vomiting associated with posterior pharyngeal pain. OBJECTIVE: T-max 98.8 degrees, heart rate 56 to 81, respirations 16 to 22, blood pressure 125 to 163 over 48 to 71.General: Chronically ill appearing, no acute distress. Cardiovascular: Regular rate and rhythm. No significant murmurs, rubs, or gallops. Pulmonary: Rhonchi and wheezing bilaterally. Abdomen: Soft, tenderness to the right rectus muscle extending from the right upper quadrant down to the right lower quadrant. Positive bowel sounds. Extremities: Patient is status post bilateral [id number] amputations. Dermatologic: Evaluation reveals a large ecchymosis to the right upper quadrant, right lower quadrant, flank and lumbar spine region. LABORATORY DATA: White blood cell count 21.24, hemoglobin 10.6, hematocrit 33.3, platelet count 263,000. Sodium 135, potassium 4.6, chloride 98, bicarb 26, BUN 45, creatinine 1.5, glucose 119. CK level 128 followed by 133, troponin 104 to 116. ASSESSMENT AND PLAN: 1. Rectus sheath hematoma-patient continues to demonstrate further bruising, but hemoglobin, hematocrit remain stable. He has considerable pain requiring intermittent Dilaudid. We will continue supportive care. We will follow serial hemoglobin and hematocrit evaluations. Aspirin and Plavix have been held as the risk outweighs the benefits. 2. Acute exacerbation of chronic obstructive pulmonary disease-unfortunately, patient continues to have considerable symptoms. Solu-Medrol was increased to 40 q.12 hours. We will continue aspiration precautions and treatment of underlying pneumonia as described below. 3. Bronchopneumonia-patient certainly is at high risk for aspiration. Patient will be converted from cefepime to Zosyn therapy. We will continue treatment of underlying COPD as noted. 4. Coronary artery disease-patient has advanced disease. This morning CK level returned acceptable, however troponin was slightly elevated. This likely was a consequence of renal failure. EKG is unchanged. We will follow this closely for now. As described above, the risk of resuming aspirin and Plavix outweighs the benefits. 5. Peripheral vascular disease-we will remain aware. Patient is treated with optimum medical and nonmedical management. 6. Type 2 diabetes-this morning, patient was noted to be hypoglycemic. We will discontinue Lantus therapy. We will continue sliding scale insulin. 7. Hypertension-patient's blood pressure is reasonably controlled on his current regimen. 8. Bullous pemphigoid-we will continue patient on steroid and doxycycline therapy. 9. Hyperlipidemia-we will continue atorvastatin therapy. 10. Hypothyroidism-we will continue patient on levothyroxine replacement. 11. Leukocytosis-this likely is a consequence of steroid use and underlying pneumonia. We will continue to follow this. 12. Acute on chronic kidney disease-the patient's creatinine is 1.5. We will remain aware. 13. Disposition-at this point, patient continues to require shelter care in a hospital setting. We will plan discharge home once appropriate. cc: Ty Forrest MD
[2019-04-23] MEDS: LIPITOR PO SCH (23:08)
[2019-04-23] MEDS: NICODERM PATCH TD SCH (23:19)
[2019-04-23] MEDS: NORCO-7.5 PO PRN (23:24)
[2019-04-24] MEDS: HUMALOG SUBQ SCH ×6 (00:38→20:41)
[2019-04-24] MEDS: ISMO PO SCH ×2 (00:38→22:00)
[2019-04-24] MEDS: ZOFRAN IV PRN ×3 (01:12→14:18)
[2019-04-24] MEDS: DILAUDID IV PRN ×3 (01:12→14:26)
[2019-04-24] MEDS: DUONEB (A & A) INH SCH ×6 (02:50→23:38)
[2019-04-24] MEDS: SOLU-MEDROL IV SCH ×2 (05:52→18:04)
[2019-04-24] MEDS: ZOSYN 3.375 GM in NS 50 ML IV SCH ×3 (05:52→20:41)
[2019-04-24 06:26] LABS: HEMOGLOBIN 9.6 g/dL (14.0-18.0); IMM GRAN% 0.6 % (0.0-0.5); MCV 99.3 FL (81-99); RDW 14.4 % (11.5-14.5)
[2019-04-24 06:44] LABS: BASO# 0.01 X1000 (0.0-0.2); BASO% 0.1 % (0.0-0.8); HEMATOCRIT 29.5 % (42.0-52.0); IMM GRAN# 0.09 X1000 (0.0-0.04); LYMPH# 0.89 X1000 (1.2-3.4); LYMPH% 5.9 % (20.5-51.1); MCH 32.3 PG (27-31); MCHC 32.5 g/dL (33-37); MONO# 0.88 X1000 (0.11-0.59); MONO% 5.9 % (1.7-9.3); MPV 11.9 FL (7.4-10.4); NEUT# 13.11 X1000 (1.4-6.5); NEUT% 87.5 % (42.2-75.2); PLT 224 X1000 (130-400); RBC 2.97 XMIL (4.7-6.1); WBC 14.98 X1000 (4.8-10.8)
[2019-04-24 06:54] LABS: ALB/GLOB RATIO 1.4; ALBUMIN 3.2 g/dL (3.5-5.0); CALCIUM 9.1 mg/dL (8.8-10.2); CREATININE 1.7 mg/dL (0.7-1.2); POTASSIUM 4.3 mmol/L (3.5-5.1); TOTAL BILIRUBIN 0.55 mg/dL (0.20-1.00); TOTAL PROTEIN 5.5 g/dL (6.3-8.3)
[2019-04-24] MEDS: PRILOSEC PO SCH (07:59)
[2019-04-24] MEDS: SYNTHROID PO SCH (07:59)
[2019-04-24] MEDS ORDERED: SOLU-MEDROL IV ONE (09:32)
[2019-04-24] MEDS: DUONEB (A & A) INH PRN (10:06)
[2019-04-24 11:27] LABS: ALLEN TEST NO; BE 6.2 mmoll (-3.0-3.0); BLOOD TYPE ARTERIAL; HCO3-(ACT) 29.8 mmoll (20.0-26.0); METHB 0.9 % (0.0-1.5); O2(CT) 14.1 mL/dL (15.0-23.0); O2HB 96.1 % (95.0-99.0); PCO2(98.6) 24 mmHg (35-45); PO2(98.6) 81 mmHg (60-100); SAMPLE BLOOD; SAO2 100.4 % (95.0-100.0); THB 10.4 g/dL (11.5-17.4)
[2019-04-24 11:28] LABS: MODALITY CANNULA; pH(98.6) 7.65 (7.35-7.45)
[2019-04-24] MEDS: MYCOSTATIN SUSP PO SCH ×4 (12:28→22:01)
[2019-04-24] MEDS: FLOMAX PO SCH (12:29)
[2019-04-24] MEDS: NORCO-7.5 PO PRN (12:30)
[2019-04-24] MEDS: NICODERM PATCH TD SCH (12:30)
[2019-04-24] MEDS ORDERED: NARCAN IV ONE (13:37)
--- NOTE | 2019-04-24 13:53 | Diag Imaging Result Doc PS360 ---
EXAM: CT HEAD AND NECK W/O CONTRAST INDICATION: History of head and neck cancer/ dysphagia/aspiration TECHNIQUE: This exam was performed using automated exposure control, adjustment of mA or kV according to patient size, and/or use of iterative reconstruction technique. COMPARISON: Contrast-enhanced CT of the neck soft tissues dated 05/30/2018 FINDINGS: HEAD: There is a small stable chronic lacunar infarct involving the right cerebellar hemisphere. There is suggestion of very mild patchy white matter microangiopathy in the periventricular and subcortical white matter, stable. There is no discrete intracranial mass, mass effect, or intracranial hemorrhage. There is no definite acute infarct given the limited sensitivity of CT versus MRI. There is mild right maxillary sinus mucosal thickening. Surrounding soft tissues and bony structures are essentially unremarkable, otherwise. NECK: Please note that soft tissue neck CTs without IV contrast are particularly limited following the detection of recurrent neoplasm. The salivary glands and thyroid are grossly unremarkable. There are soft tissue metallic clips lateral to the thyroid cartilage on the left, stable. There is asymmetric thickening at the level of the lingual tonsils on the left. However, this is stable. No underlying mass can be identified on this study or the previous contrast-enhanced study. There is stable effacement of the left vallecula. No new discrete mass or new aerodigestive tract thickening is identified given the limitations of an unenhanced study. No new cervical lymphadenopathy is appreciated. There is a stable right carotid stent. Limited views of the lung apices are unremarkable. IMPRESSION: 1.Mild chronic appearing changes as described that are stable. No definite acute intracranial pathology by CT. 2.Asymmetric thickening of the right side of the digestive tract mainly involving the region of the lingual tonsil on the left and effacing the left vallecula. However, this is stable. 3.No other significant change as compared to the previous study as imaged with unenhanced CT. Electronically signed by Avila Araya 04/24/2019 1:51 PM
[2019-04-24 14:25] LABS: ALLEN TEST NO; BE 3.3 mmoll (-3.0-3.0); BLOOD TYPE ARTERIAL; HCO3-(ACT) 27.5 mmoll (20.0-26.0); METHB 1.3 % (0.0-1.5); O2(CT) 15.2 mL/dL (15.0-23.0); O2HB 95.9 % (95.0-99.0); PCO2(98.6) 27 mmHg (35-45); PO2(98.6) 98 mmHg (60-100); SAMPLE BLOOD; SAO2 99.2 % (95.0-100.0); THB 11.2 g/dL (11.5-17.4)
[2019-04-24 14:28] LABS: MODALITY CANNULA; pH(98.6) 7.57 (7.35-7.45)
[2019-04-24] MEDS ORDERED: DILAUDID ONE (14:29)
[2019-04-24] MEDS: ATIVAN IV PRN (14:51)
[2019-04-24] MEDS: COZAAR PO SCH (15:12)
[2019-04-24] MEDS: WELLBUTRIN XL PO SCH (15:13)
[2019-04-24] MEDS: TESSALON PO SCH ×3 (15:13→16:18)
[2019-04-24] MEDS: TOPROL XL PO SCH (15:13)
[2019-04-24] MEDS: VITAMIN B-12 PO SCH (15:13)
[2019-04-24] MEDS: DOXYCYCLINE PO SCH ×2 (15:14→21:59)
[2019-04-24] MEDS: FOLIC ACID PO SCH (15:14)
[2019-04-24] MEDS: MIRALAX PO SCH ×2 (15:15→22:00)
[2019-04-24] MEDS: NEURONTIN PO SCH ×2 (15:15→22:01)
[2019-04-24] MEDS: PERICOLACE PO SCH ×2 (15:15→22:02)
[2019-04-24] MEDS: HYDROCHLOROTHIAZIDE PO SCH (15:15)
[2019-04-24] MEDS: NORVASC PO SCH ×2 (15:16→22:01)
--- NOTE | 2019-04-24 20:27 | PROGRESS NOTE ---
DATE: 04/24/2019 SUBJECTIVE: Upon arrival this morning, the patient stated he was doing reasonably well. He rested overnight. In the mid to late morning, I was contacted in regards to increasing neck discomfort and shortness of breath. Over the phone, we directed medical intervention including adding a dose of Solu-Medrol 40 mg. ABG was performed. ABG confirmed adequate oxygenation, but hyperventilation with a pH of 7.65. Because of the intractable nature of his symptoms, and his throat pain, the patient was referred for CT scan. While in the CT scan, the patient experienced a syncopal episode. My clinic was stopped and I responded immediately. Upon my arrival, the patient was unresponsive. With his vital signs, however, were within acceptable range. With time, the patient was aroused, although not back to baseline. I attended the patient for approximately 1-1/2 hours. We moved patient back from CT scan to his room. With time, the patient became more aroused and began complaining again of his neck pain. He was unable to speak secondary to laryngeal irritation. The patient was coughing profusely. At times coughing up food particles. A repeat ABG was performed revealing some improvement in his condition, although, persistent hyperventilation. During this episode, the patient also complains of chest discomfort, leg discomfort and abdominal discomfort. Ultimately, after discussion with the patient and family, it was felt that sedating medications may be most appropriate. A dose of Dilaudid was provided with moderate improvement. With time, and persistent symptoms, ultimately, a dose of Ativan was provided. This proved to be most effective in decreasing his anxiety as well as his muscle spasms in his neck. A CT scan of the head ultimately was performed revealing no evidence of acute process. CT scan of the neck revealed asymmetric thickening of the right side of the digestive tract mainly involving the region of the lingual tonsil on the left and effacing the left vallecular. This was noted to be stable from previous CT scans. Upon my arrival this morning, the patient noted significant improvement in his clinical condition. He noted less shortness of breath. He was tolerating a liquid diet. He currently denies fevers, chills, nausea, or vomiting. OBJECTIVE: Vital signs: T-max 98.3, heart rate 75 to 85, respirations 12 to 18, blood pressure 113 to 169/52 to 117. General: Chronically ill appearing, no acute distress at present time. Pulmonary: Rhonchi and wheezing bilaterally. Adequate air movement. Abdomen: Soft, superficial tenderness at the site of his hematoma. Nondistended. Positive bowel sounds. Extremities: The patient has bilateral lower extremity amputations. No significant edema. Dermatologic: Evaluation revealed a large ecchymosis to his right abdomen extending into his right hip and groin region. LABORATORY DATA: White blood cell count 14.98, hemoglobin 9.6, hematocrit 29.5, platelet count 224,000. Sodium 143, potassium 4.3, chloride 96, bicarb 29, BUN 45, creatinine 1.7, glucose 254, calcium 9.1, total bilirubin 0.55, total protein 5.5, albumin 3.2, alkaline phosphatase 47, AST 19, ALT 22. Serial ABGs revealed pH 7.65, pCO2 24, PO2 81, bicarbonate 29.8. Followed 3 hours later with a pH 7.57 pCO2 27, PO2 98 bicarbonate 27.5. ASSESSMENT AND PLAN: 1. Rectus sheath hematoma - Unfortunately, the patient continues to have considerable pain and bruising. We will continue patient on as-needed Dilaudid. At this point, the risk of resuming aspirin and Plavix outweighs the benefits. Hemoglobin and hematocrit at the present time are stable. 2. Syncopal episode - This likely was associated with his intractable neck and throat pain in the setting of hyperventilation. As above, the patient was attended to by me and multiple staff members for approximately an hour and a half. Ultimately, we achieved stabilization of his condition with time and with medical intervention. We will continue patient on as needed Ativan for hyperventilation and for cervical spine and posterior pharyngeal muscle spasms. 3. Dysphagia - The patient is a very high aspiration risk. Speech pathology was consulted this morning. We will plan a swallowing evaluation once able. We will consider whether ENT consultation is also appropriate in the next 24 to 48 hours. 4. Acute exacerbation of chronic obstructive pulmonary disease - Unfortunately, the patient continues to have considerable wheezing and rhonchi. I suspect this is secondary to chronic aspiration. We will continue patient on Solu-Medrol, bronchodilators and Zosyn therapy. 5. Bronchopneumonia - As above, this likely is aspiration in etiology. We will continue Zosyn therapy. White blood cell count is improving. 6. Coronary artery disease - The patient has advanced disease. Yesterday, troponin was noted to be slightly elevated with a normal CK level. I suspect this was secondary to chronic kidney disease. We will remain aware. As above, aspirin and Plavix have been held. 7. Peripheral vascular disease - The patient has longstanding disease. We will continue to optimize medical and nonmedical management. 8. Type 2 diabetes - Unfortunately, the patient had an episode of hypoglycemia yesterday. His Lantus was discontinued. For now, we will continue sliding scale insulin. 9. Hypertension - The patient's blood pressure is labile. We will continue home medications. 10. Bolus pemphigoid - We will continue the patient on steroids and doxycycline therapy. 11. Hyperlipidemia - We will continue atorvastatin therapy. 12. Hypothyroidism - We will continue the patient on levothyroxine therapy. 13. Leukocytosis - This is trending downwards. We will continue treatment as described above. 14. Acute on chronic kidney disease - The patient's creatinine is up to 1.7. We will plan to repeat this in the a.m. We will encourage hydration. 15. Disposition - At this point, patient continues to require prison care in the intensive care unit setting. We will plan transfer to the floor and discharge home once appropriate. cc: Ty Forrest MD
[2019-04-24] MEDS: LIPITOR PO SCH (22:00)
[2019-04-25] MEDS: ZOSYN 3.375 GM in NS 50 ML IV SCH ×4 (02:05→20:18)
[2019-04-25] MEDS: DUONEB (A & A) INH SCH ×6 (03:44→23:37)
[2019-04-25] MEDS: SOLU-MEDROL IV SCH ×2 (06:48→17:48)
[2019-04-25] MEDS: HUMALOG SUBQ SCH ×5 (06:48→20:19)
[2019-04-25] MEDS: PRILOSEC PO SCH (06:56)
[2019-04-25] MEDS: SYNTHROID PO SCH (06:56)
[2019-04-25] MEDS: ATIVAN IV PRN ×2 (09:51→22:23)
[2019-04-25] MEDS: DOXYCYCLINE PO SCH (10:15)
[2019-04-25] MEDS: COZAAR PO SCH (10:15)
[2019-04-25] MEDS: WELLBUTRIN XL PO SCH (10:15)
[2019-04-25] MEDS: PERICOLACE PO SCH (10:16)
[2019-04-25] MEDS: TESSALON PO SCH ×3 (10:16→16:34)
[2019-04-25] MEDS: TOPROL XL PO SCH (10:16)
[2019-04-25] MEDS: VITAMIN B-12 PO SCH (10:16)
[2019-04-25] MEDS: NEURONTIN PO SCH (10:17)
[2019-04-25] MEDS: MIRALAX PO SCH (10:17)
[2019-04-25] MEDS: NORVASC PO SCH (10:17)
[2019-04-25] MEDS: NICODERM PATCH TD SCH (10:17)
[2019-04-25] MEDS: MYCOSTATIN SUSP PO SCH ×3 (10:17→16:34)
[2019-04-25] MEDS: KLONOPIN PO SCH (10:18)
[2019-04-25] MEDS: FLOMAX PO SCH (10:18)
[2019-04-25] MEDS: HYDROCHLOROTHIAZIDE PO SCH (10:18)
[2019-04-25] MEDS: FOLIC ACID PO SCH (10:18)
--- NOTE | 2019-04-25 11:18 | EKG Report ---
Test Performed on : 04/25/2019 11:14:11 AM Test Reason : run of v tach Blood Pressure : / mmHG Vent. Rate : 075 BPM Atrial Rate : 075 BPM P-R Int : 134 ms QRS Dur : 100 ms QT Int : 404 ms P-R-T Axes : 063 011 139 degrees QTc Int : 451 ms Normal sinus rhythm. Possible Inferior infarct , age undetermined ST & T wave abnormality, consider lateral ischemia Abnormal ECG No previous ECGs available Confirmed by Parveen JUAREZ, Sae Mi ([id number]) on 04/26/2019 7:30:39 AM
[2019-04-25] MEDS ORDERED: CARDIZEM 100 MG/NS 100 MG/100 ML IVPB IV SCH (12:00)
--- NOTE | 2019-04-25 12:37 | EKG Report ---
Test Performed on : 04/25/2019 11:38:37 AM Test Reason : AFIB Blood Pressure : / mmHG Vent. Rate : 133 BPM Atrial Rate : 140 BPM P-R Int : 000 ms QRS Dur : 100 ms QT Int : 348 ms P-R-T Axes : 000 006 146 degrees QTc Int : 517 ms Atrial fibrillation. with rapid ventricular response. Possible Inferior infarct (cited on or before 25-APR-2019) ST & T wave abnormality, consider lateral ischemia Abnormal ECG When compared with ECG of 25-APR-2019 11:14, (Unconfirmed) Atrial fibrillation. has replaced Sinus rhythm. Vent. rate has increased BY 58 BPM Confirmed by Parveen JUAREZ, Sae Mi ([id number]) on 04/26/2019 7:30:54 AM
[2019-04-25] MEDS ORDERED: NS 500 ML IV ONE (13:47)
[2019-04-25] MEDS ORDERED: CORDARONE 150 MG/D5W 150 MG/100 ML IV.SOLN IV ONE (13:48)
[2019-04-25] MEDS ORDERED: CORDARONE 360 MG/D5W 360 MG/200 ML IV.SOLN IV ONE (13:48)
[2019-04-25 14:58] LABS: FREE T4 0.78 ng/dL (0.93-1.70); TSH 1.46 uIUmL (0.27-4.20)
--- NOTE | 2019-04-25 15:29 | CONSULTATION ---
DATE OF CONSULTATION: 04/25/2019 IMPRESSION: 1. New onset atrial fibrillation with rapid ventricular rate. 2. Recent syncopal episode without loss of pulse. Etiology not entirely clear. But patient clinically manifest evidence of hyperventilation. 3. Recent rectus sheath hematoma developing following coughing spell and with patient on Plavix and aspirin. 4. Atherosclerotic coronary disease with previous coronary bypass grafting 2003 and later angioplasty/stenting of saphenous vein to the right coronary artery in 2011. Last cardiac catheterization study 2013 demonstrated mild left main coronary stenosis, occluded left anterior descending coronary, occluded ramus intermedius/circumflex coronary artery, occluded proximal right coronary, and occluded saphenous vein graft to ramus intermedius, patent stents and saphenous vein graft to distal right coronary, and patent left internal mammary artery graft to left anterior descending coronary. Left ventricular ejection fraction has been preserved. Medical management recommended. 5. Extensive history of peripheral vascular disease and bilateral carotid disease. 6. Diabetes mellitus. 7. Hypertension. 8. Chronic obstructive pulmonary disease. 9. Hyperlipidemia. 10. 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 11. Recurrent aspiration becoming increasingly problematic. 12. Status post bilateral above knee amputations, unspecified head and neck surgery, previous coronary bypass surgery, and cataract surgery. 13. He has had several feeding tubes in the past with associated complications necessitating removal. 14. He is allergic or intolerant to metformin, rosuvastatin, morphine, nitroglycerin, amitriptyline. RECOMMENDATIONS: 1. Resume aspirin as tolerated but hold off on resuming Plavix. 2. Try and restore sinus rhythm. We will give fluid boluses patient appears to be presently intravascular volume depleted and give intravenous amiodarone to try and promote "chemical cardioversion." 3. Conservative cardiovascular management overall in light of patient's. Severe comorbidities. HISTORY: This 75-year-old, white male with past history of atherosclerotic coronary disease, previous coronary bypass grafting, extensive history of peripheral vascular disease, COPD, recurrent aspiration, head and neck cancer involving base of the tongue, hypertension, hyperlipidemia, type 2 diabetes mellitus, continued cigarette use was admitted, recently with rectus sheath hematoma. He also has bilateral ayabt-[id number] amputations. He has been on aspirin and Plavix and following a protracted coughing spell felt acute discomfort in the right upper abdominal wall region and started to notice a bulge form. He was having fairly intense pain and presented acutely and was found to have a rectus sheath hematoma. Aspirin and Plavix have been held. He was admitted on April 19. During his hospital stay, he has had problems with probable recurrent aspiration. This is not a new problem. He has had problems with exacerbation of COPD, as well as possible broncho- pneumonia likely related to aspiration. He was getting a CT scan and suffered intractable neck and throat pain. He had transient loss of consciousness without loss of pulse. He was ultimately stabilized. Appeared to have hyperventilation and arterial blood gas suggested respiratory alkalosis. He was treated conservatively in regards to this. A few days ago he received some intravenous Lasix for diuresis. He is not normally receiving Lasix. He has not been eating very much due to his problems with a tendency for dysphagia and aspiration. This morning, he went into atrial fibrillation with rapid ventricular rate prompting cardiology consultation. There is no prior history of atrial fibrillation or palpitations. He has not had any recent angina. He is presently sedated somewhat and not able to give much history. His family indicates that he has strongly expressed preference for conservative management. He actually has stated that he wishes to be left alone. PAST MEDICAL HISTORY: 1. Atherosclerotic coronary disease as outlined above. 2. Extensive history of peripheral vascular disease and cerebral vascular disease. 3. Chronic obstructive pulmonary disease. 4. Recurrent aspiration. 5. Head and neck cancer involving base of tongue. 6. Hypertension. 7. Hyperlipidemia. 8. Diabetes mellitus. 9. Chronic obstructive pulmonary disease. 10. Chronic cigarette use ongoing. 11. Obesity. PAST SURGICAL HISTORY: Includes previous coronary bypass surgery, right common carotid artery stent, right internal carotid artery stent, left carotid endarterectomy, left lzwfq-vse-tfev amputation, right nqmbl-[id number] amputations, multiple gastrostomy feeding tubes with associated complications, and cataract surgery. He has also had unspecified head and neck surgery. ALLERGIES: He is allergic or intolerant to Crestor, amitriptyline, metformin, nitroglycerin and morphine. MEDICATIONS: Prior to admission as listed. SOCIAL HISTORY: He lives in the vicinity of family independently. He is status post above-the- knee amputations bilaterally and uses a wheelchair. He continues to smoke cigarettes. He does not use alcohol. FAMILY HISTORY: Positive for coronary disease and type 2 diabetes mellitus. REVIEW OF SYSTEMS: Not readily obtainable given patient being sedated at the time of encounter. PHYSICAL EXAMINATION: General: Reveals an older overweight white male, status post bilateral juumk-xhm-ptdw amputations. In no distress on supplemental oxygen per mask. Vital signs: Blood pressure 110/69, heart rate 99, oxygen saturation 98%. HEENT: Extraocular movements appear intact. Mucous membranes are somewhat dry. Neck: Supple without discernible jugular distention. Auscultation of the chest reveals coarse breath sounds bilaterally. Cardiac Exam: Reveals an irregular rate and rhythm without appreciable murmur or gallop. Abdomen: Soft. Bowel sounds are audible. Extremities: Status post bilateral above knee amputations. EKG: Demonstrates atrial fibrillation with rapid ventricular rate and nonspecific ST and T-wave abnormality. LABORATORY DATA: Includes a white blood cell count 14.98, hematocrit 29.5, hemoglobin 9.6, platelet count 224,000. Sodium 134, potassium 4.3, chloride 96, carbon dioxide 29, BUN 45, creatinine 1.7. Glucose 254, initial troponin T high-sensitivity on 04/18 was 34 with followup troponin T high-sensitivity of 104 on April 23 and 116 again later on April 23. CPK on April 23 128 with followup CPK 133. Albumin 3.2. cc: MD Ty Allen MD
[2019-04-25 15:54] LABS: MAGNESIUM 2.5 mg/dL (1.5-2.7)
[2019-04-25] MEDS: ASPIRIN PO SCH (16:34)
[2019-04-25] MEDS ORDERED: CORDARONE 540 MG in D5W 289.2 ML IV ONE (19:48)
--- NOTE | 2019-04-25 20:00 | PROGRESS NOTE ---
DATE: 04/25/2019 SUBJECTIVE: Overnight, patient states he rested reasonably well. This morning, upon my arrival, patient was sitting upright in bed. He noted his breathing to be considerably improved. He noted his neck discomfort and dysphagia to be improving. There was no evidence of fevers or chills overnight. After attempting to eat breakfast, patient again experienced an episode of dysphagia. Patient was forced to vomit his pudding secondary to fear of aspiration. After this occurrence, patient developed atrial fibrillation with rapid ventricular response. Patient denied chest discomfort at that time. Patient was placed on IV Cardizem drip. Cardiology was consulted. Upon their arrival, they transitioned patient to an amiodarone drip. Aspirin was resumed, but Plavix continued to be held. This evening, patient states he is feeling reasonably well. He denies chest discomfort. Breathing remains acceptable. He has had no evidence of fevers or chills. He has not been able to tolerate p.o. today. OBJECTIVE: Vital signs: T-max 98.9 degrees, heart rate, 90 to 121, respirations 16 to 31, blood pressure 108 to 146 over 70 to 101. General: Chronically ill appearing, no acute distress. Cardiovascular: Irregularly irregular. No significant murmurs, rubs, or gallops. Pulmonary: Minimal wheezing, significantly improved from yesterday. Adequate air movement. Abdomen: Soft, nontender, nondistended. Positive bowel sounds. Extremities: The patient is a bilateral above- knee amputee. No significant edema is identified. Dermatologic: Evaluation reveals no evidence of rash. A large ecchymosis remains present in the abdomen and flank region. LABORATORY DATA: CK 28, troponin 128. TSH 1.46, free T4 0.78. Magnesium 2.5. ASSESSMENT AND PLAN: 1. Rectus sheath hematoma: Patient's hemoglobin and hematocrit remain stable. We will continue treating pain with as needed Dilaudid. As described above, Dr. Forbes has resumed aspirin, but Plavix continues to be held. We will follow. 2. Syncopal episode: This occurred yesterday. This likely was secondary to intractable neck and throat pain in the setting of hyperventilation. He has had no further episodes. We will follow this clinically. 3. Dysphagia: Unfortunately, patient remains a very high aspiration risk. Speech Pathology has been consulted. We will determine if further intervention is warranted. Depending on findings, we will consider whether gastroenterology consultation is appropriate. 4. Acute exacerbation of chronic obstructive pulmonary disease: From a pulmonary standpoint, patient does demonstrate improvement today. We will continue Solu-Medrol, bronchodilators, and Zosyn therapy. 5. Bronchopneumonia: We will continue patient on Zosyn therapy. 6. Atrial fibrillation with rapid ventricular response: This is a new diagnosis. I appreciate Dr. Forbes's consultation. We will continue patient on amiodarone drip. 7. Coronary artery disease: Patient has advanced disease. A CK level today is normal. Troponin is slightly elevated. I suspect this is secondary to kidney dysfunction. We will continue his optimized medical management with the exception of holding Plavix as described above. 8. Peripheral vascular disease: Patient has longstanding disease. We will continue to optimize medical and nonmedical management. 9. Type 2 diabetes: Blood sugars remain elevated. We will continue patient on sliding scale insulin. Lantus has been held in the setting of an episode of hypoglycemia. 10. Hypertension: Patient's blood pressure is reasonably controlled on his current regimen. 11. Bullous pemphigoid: We will continue patient on steroids and doxycycline therapy. 12. Hyperlipidemia: We will continue patient on atorvastatin therapy. 13. Hypothyroidism: We will continue patient on levothyroxine. 14. Leukocytosis: White blood cell count is trending downward. We will plan to recheck this today. 15. Acute on chronic kidney disease: We will continue to encourage p.o. intake. 16. Disposition: At this point, patient continues to require snf care in a hospital setting. We will plan discharge home once appropriate. cc: Ty Forrest MD
[2019-04-25] MEDS: DILAUDID IV PRN (22:23)
[2019-04-26] MEDS: DOXYCYCLINE PO SCH ×4 (00:40→21:22)
[2019-04-26] MEDS: ISMO PO SCH (00:41)
[2019-04-26] MEDS: LIPITOR PO SCH ×2 (00:42→21:22)
[2019-04-26] MEDS: MIRALAX PO SCH ×3 (00:42→21:23)
[2019-04-26] MEDS: KLONOPIN PO SCH ×3 (00:42→20:23)
[2019-04-26] MEDS: NEURONTIN PO SCH ×3 (00:43→21:23)
[2019-04-26] MEDS: NORVASC PO SCH ×2 (00:43→09:34)
[2019-04-26] MEDS: MYCOSTATIN SUSP PO SCH ×5 (00:43→20:23)
[2019-04-26] MEDS: PERICOLACE PO SCH ×2 (00:43→09:34)
[2019-04-26] MEDS: ZOSYN 3.375 GM in NS 50 ML IV SCH ×4 (04:00→20:24)
[2019-04-26] MEDS: DUONEB (A & A) INH SCH ×6 (04:04→23:18)
[2019-04-26 05:50] LABS: HEMATOCRIT 30.3 % (42.0-52.0); HEMOGLOBIN 9.7 g/dL (14.0-18.0); LYMPH# 0.25 X1000 (1.2-3.4); LYMPH% 1.4 % (20.5-51.1); MCH 32.7 PG (27-31); MONO# 0.84 X1000 (0.11-0.59); MONO% 4.8 % (1.7-9.3); MPV 12.2 FL (7.4-10.4); NEUT% 93.8 % (42.2-75.2); PLT 205 X1000 (130-400); RBC 2.97 XMIL (4.7-6.1); RDW 14.9 % (11.5-14.5); WBC 17.39 X1000 (4.8-10.8)
[2019-04-26] MEDS: SOLU-MEDROL IV SCH ×2 (06:02→17:13)
[2019-04-26 06:12] LABS: ALB/GLOB RATIO 1.3; ALBUMIN 2.8 g/dL (3.5-5.0); CALCIUM 8.9 mg/dL (8.8-10.2); CREATININE 1.2 mg/dL (0.7-1.2); TOTAL BILIRUBIN 0.49 mg/dL (0.20-1.00)
[2019-04-26] MEDS: HUMALOG SUBQ SCH ×4 (06:31→20:23)
[2019-04-26 06:41] LABS: LYMPHS 1 % (21-51); MONO 1 % (1-9); SEGS 98 % (42-75)
[2019-04-26] MEDS: PRILOSEC PO SCH (07:17)
[2019-04-26] MEDS: SYNTHROID PO SCH (07:17)
--- NOTE | 2019-04-26 07:26 | EKG Report ---
Test Performed on : 04/26/2019 06:51:19 AM Test Reason : afib Blood Pressure : / mmHG Vent. Rate : 079 BPM Atrial Rate : 079 BPM P-R Int : 140 ms QRS Dur : 102 ms QT Int : 414 ms P-R-T Axes : 057 028 129 degrees QTc Int : 474 ms Normal sinus rhythm. Possible Left atrial enlargement ST & T wave abnormality, consider lateral ischemia Abnormal ECG When compared with ECG of 25-APR-2019 11:38, (Unconfirmed) Sinus rhythm. has replaced Atrial fibrillation. Vent. rate has decreased BY 54 BPM Borderline criteria for Inferior infarct are no longer present Confirmed by Parveen JUAREZ, Sae Mi ([id number]) on 04/26/2019 7:31:42 AM
[2019-04-26] MEDS: NICODERM PATCH TD SCH (08:22)
[2019-04-26] MEDS ORDERED: CLINIMIX E IV SCH (08:45)
[2019-04-26] MEDS ORDERED: SODIUM CHLORIDE IV SCH (08:45)
[2019-04-26] MEDS: WELLBUTRIN XL PO SCH (09:33)
[2019-04-26] MEDS: ASPIRIN PO SCH (09:33)
[2019-04-26] MEDS: TOPROL XL PO SCH (09:34)
[2019-04-26] MEDS: VITAMIN B-12 PO SCH (09:34)
[2019-04-26] MEDS: FOLIC ACID PO SCH (09:35)
[2019-04-26] MEDS: FLOMAX PO SCH (09:35)
[2019-04-26] MEDS: HYDROCHLOROTHIAZIDE PO SCH (09:35)
[2019-04-26] MEDS: COZAAR PO SCH (09:35)
--- NOTE | 2019-04-26 09:51 | Extremity Venous Study ---
PROCEDURE NAME: Venous U/S Bilateral Legs - 04/24/2019 REFERRING PHYSICIAN: Dr. Forrest. READING PHYSICIAN: Dr. Trammell. MANAGER GAS: Gallo. INDICATION: Lower extremity stump pain and swelling. Of note, the patient has bilateral above- knee amputations. FINDINGS: The deep and superficial veins of the thighs were imaged bilaterally. They are compressible and patent without thrombus. INTERPRETATION: No deep venous thrombosis or supraventricular tachycardia of either above-knee amputation stump. cc: MD Ty Queen MD
[2019-04-26] MEDS: DILAUDID IV PRN ×3 (14:38→22:05)
--- NOTE | 2019-04-26 15:31 | PROGRESS NOTE ---
DATE: 04/26/2019 SUBJECTIVE: The patient converted back to sinus rhythm. He is more awake today, but somewhat drowsy. He has some cough and chest congestion. There has been no chest pain. OBJECTIVE: Vital Signs: Blood pressure 156/69 heart rate 81, oxygen saturation 93 to 95 percent on supplemental oxygen. Neck: There is no significant jugular venous distention. Chest: Auscultation of the chest reveals a few scattered expiratory rhonchi. Cardiac: Exam reveals a regular rate and rhythm without appreciable murmur or gallop. LABORATORY DATA: Includes white blood cell count of 17.39, hematocrit 30.3, hemoglobin 9.7, platelet count 205. Sodium 133, potassium 4.0, chloride 98, carbon dioxide 24. BUN 34, creatinine 1.2, glucose 330. Initial CPK 133, followup CPK 29. Initial troponin-T high sensitivity 116; followup troponin-T high sensitivity 128. Abdomen 2.8. IMPRESSION: 1. Recent atrial fibrillation. Patient back in sinus rhythm. 2. Recent syncopal episode without loss of pause. Etiology not entirely clear, but the patient did manifest evidence of hyperventilation. Intravascular volume depletion may have also been playing a role. 3. Recent rectus sheath hematoma. 4. Atherosclerotic coronary disease. 5. Extensive history of peripheral vascular disease and bilateral carotid disease. 6. Diabetes mellitus. 7. Hypertension. 8. Chronic obstructive pulmonary disease. 9. Hyperlipidemia. 10. Head and neck cancer involving base of tongue. 11. Recurrent aspiration. RECOMMENDATIONS: 1. Stop amiodarone at this point. 2. Maintain hydration. 3. Conservative cardiovascular management overall. 4. Continue aspirin daily for now. cc: MD Ty Allen MD
[2019-04-26] MEDS: NS 1,000 ML IV SCH (15:40)
--- NOTE | 2019-04-26 21:16 | PROGRESS NOTE ---
DATE: 04/26/2019 SUBJECTIVE: Upon my arrival this morning, patient was sitting upright in bed. Overall, he states he had a reasonable night. Patient was unable to tolerate p.o. For this reason, Clinimix was initiated. Dr. Cruz was consulted. This evening, the patient states he continues to do reasonably well. P.o. intake has not been possible today with exception of minimal ice chips. Energy level is low. The pulmonary status continues to slowly improve. He denies fever, chills, or chest pains. Atrial fibrillation from yesterday has converted back to a normal sinus rhythm. OBJECTIVE: T-max 98.9 degrees, heart rate 71 to 96, respirations 13 to 25 blood pressure 136 to 176 over 50 to 117.General: Chronically ill appearing, no acute distress. Cardiovascular: Regular rate and rhythm. No significant murmurs, rubs, or gallops. Pulmonary: Occasional wheeze and rhonchi bilaterally, improving air movement. Abdomen: Soft. Tenderness to the ecchymosis, but no deep tenderness, guarding, or rebound. Positive bowel sounds. Extremities: The patient has bilateral above the knee amputations. No significant edema. Dermatologic: Evaluation reveals a large ecchymosis to the right upper quadrant extending down the right lower quadrant and right flank, and right lumbar spine. LABORATORY DATA: White blood cell count 17.39, hemoglobin 9.7, hematocrit 30.3, platelet count 205,000, sodium 133, potassium 4.0, chloride 98, bicarb 24, BUN 34, creatinine 1.2, glucose 330, calcium 8.9, total bilirubin 0.49, total protein 5.0, albumin 2.8, alkaline phosphatase 40, AST 9, ALT 16. ASSESSMENT AND PLAN: 1. Rectus sheath hematoma-hemoglobin and hematocrit remain stable. As described yesterday, aspirin was resumed by Dr. Forbes. Thus far, he has tolerated this well. Plavix continues to be held. 2. Syncopal episode-I suspect this was secondary to hyperventilation. He has had no further episodes. We will remain aware. 3. Dysphagia-unfortunately, patient is unable to swallow safely at this point. Today, he has only tolerated a few ice chips. We will consult Dr. Cruz. Unfortunately, we may need to consider repeat PEG tube placement. For now, his nutrition is being provided through Clinimix. 4. Acute exacerbation of chronic obstructive pulmonary disease-the patient has achieved some improvement from yesterday. We will continue Solu-Medrol, bronchodilators, and Zosyn therapy. We will determine if decreasing Solu-Medrol is appropriate tomorrow. 5. Bronchial pneumonia-we will continue Zosyn therapy. 6. Atrial fibrillation with rapid ventricular response-I appreciate Dr. Forbes's consultation. The patient's amiodarone drip has been discontinued. We will follow patient on telemetry. 7. Coronary artery disease-patient has advanced disease. At this point, he is not tolerating p.o., thus his optimized medical regimen has been held. We will resume this once able. 8. Peripheral vascular disease-patient has longstanding, advanced disease. We will continue to optimize medical management once able to tolerate p.o. 9. Type 2 diabetes-patient's blood sugars remain elevated. His Lantus has been held secondary to an episode of hypoglycemia. We will resume 10 units of Lantus at bedtime. 10. Hypertension-patient's blood pressure is trending upwards, likely secondary to inability to tolerate p.o. We will continue to follow. 11. Bullous pemphigoid-we will continue steroids and doxycycline therapy. 12. Hyperlipidemia-we will resume atorvastatin therapy once tolerating p.o. 13. Hypothyroidism-at this point, he is untreated. We will resume levothyroxine once able to tolerate p.o. If he is not able to swallow in the next several days, we will plan to start IV replacement. 14. Acute on chronic kidney disease-the patient's kidney function today has improved with a creatinine of 1.2. We will continue to follow. DISPOSITION: At this point, patient continues to require assisted care in a hospital setting. We will plan discharge home once appropriate. cc: Ty Forrest MD
[2019-04-26] MEDS ORDERED: ASPIRIN PR ONE (21:56)
--- NOTE | 2019-04-26 22:13 | EKG Report ---
Test Performed on : 04/26/2019 9:30:54 PM Test Reason : cp, arm pain Blood Pressure : / mmHG Vent. Rate : 083 BPM Atrial Rate : 083 BPM P-R Int : 126 ms QRS Dur : 102 ms QT Int : 394 ms P-R-T Axes : 044 006 149 degrees QTc Int : 462 ms Sinus rhythm. with occasional premature ventricular complexes. Possible Left atrial enlargement Inferior infarct (cited on or before 25-APR-2019) Cannot rule out Anterior infarct (cited on or before 26-APR-2019) ST & T wave abnormality, consider lateral ischemia Abnormal ECG When compared with ECG of 26-APR-2019 21:30, (Unconfirmed) premature ventricular complexes. are now present Confirmed by Parveen JUAREZ, Sae Mi ([id number]) on 04/29/2019 9:22:35 AM
[2019-04-26] MEDS: LANTUS INSULIN SUBQ SCH (22:19)
[2019-04-26] MEDS: SODIUM CHLORIDE 75 MEQ in CLINIMIX E 4.25%-5% SOLUTION 1,000 ML IV SCH (22:19)
[2019-04-27] MEDS: PERICOLACE PO SCH ×3 (00:14→20:12)
[2019-04-27] MEDS: ZOSYN 3.375 GM in NS 50 ML IV SCH ×4 (02:20→20:13)
[2019-04-27] MEDS: DUONEB (A & A) INH SCH ×6 (02:37→23:25)
[2019-04-27] MEDS: DILAUDID IV PRN ×4 (04:24→22:06)
[2019-04-27] MEDS: SOLU-MEDROL IV SCH ×2 (05:54→17:34)
[2019-04-27] MEDS: HUMALOG SUBQ SCH ×4 (06:10→20:12)
[2019-04-27] MEDS: SYNTHROID PO SCH (06:11)
[2019-04-27] MEDS: PRILOSEC PO SCH (06:11)
[2019-04-27] MEDS: NS 1,000 ML IV SCH ×2 (06:13→20:12)
--- NOTE | 2019-04-27 07:04 | EKG Report ---
Test Performed on : 04/26/2019 9:30:34 PM Test Reason : ICU. NO EKG ORDER FOR MUSE Blood Pressure : / mmHG Vent. Rate : 085 BPM Atrial Rate : 085 BPM P-R Int : 130 ms QRS Dur : 102 ms QT Int : 388 ms P-R-T Axes : 047 010 145 degrees QTc Int : 461 ms Normal sinus rhythm. Possible Left atrial enlargement Inferior infarct , age undetermined Cannot rule out Anterior infarct , age undetermined ST & T wave abnormality, consider lateral ischemia Abnormal ECG When compared with ECG of 26-APR-2019 06:51, No significant change was found Confirmed by Parveen JUAREZ, Sae Mi ([id number]) on 04/29/2019 9:22:31 AM
[2019-04-27] MEDS ORDERED: NORVASC PO SCH (09:00)
[2019-04-27] MEDS: TOPROL XL PO SCH (09:41)
[2019-04-27] MEDS: ASPIRIN PO SCH (09:41)
[2019-04-27] MEDS: WELLBUTRIN XL PO SCH (09:41)
[2019-04-27] MEDS: VITAMIN B-12 PO SCH (09:41)
[2019-04-27] MEDS: MIRALAX PO SCH ×2 (09:42→20:21)
[2019-04-27] MEDS: MYCOSTATIN SUSP PO SCH ×4 (09:42→20:12)
[2019-04-27] MEDS: NEURONTIN PO SCH ×2 (09:42→20:21)
[2019-04-27] MEDS: NICODERM PATCH TD SCH (09:42)
[2019-04-27] MEDS: FOLIC ACID PO SCH (09:43)
[2019-04-27] MEDS: HYDROCHLOROTHIAZIDE PO SCH (09:43)
[2019-04-27] MEDS: DOXYCYCLINE PO SCH ×2 (09:43→20:21)
[2019-04-27] MEDS: KLONOPIN PO SCH ×2 (09:43→20:21)
[2019-04-27] MEDS: FLOMAX PO SCH (09:43)
[2019-04-27] MEDS: COZAAR PO SCH (09:44)
[2019-04-27] MEDS: SODIUM CHLORIDE 75 MEQ in CLINIMIX E 4.25%-5% SOLUTION 1,000 ML IV SCH (09:53)
[2019-04-27] MEDS: ZEBETA PO SCH (17:34)
--- NOTE | 2019-04-27 18:07 | PROGRESS NOTE ---
DATE: 04/27/2019 SUBJECTIVE: The patient had some left arm and chest discomfort last night, possibly angina. He reports feeling well today. He denies shortness of breath. There has been no further chest discomfort. OBJECTIVE: Vital Signs: Blood pressure 135/57, heart rate 75, oxygen saturation 97%. Neck: There is no significant jugular venous distention. Chest: Clear to auscultation. Cardiac Exam: Reveals a regular rate and rhythm without appreciable murmur or gallop. LABORATORY DATA: Includes BMP from yesterday showing sodium 133, potassium 4.0, chloride 98, carbon dioxide 24, BUN 34, creatinine 1.2, glucose 330, troponin T, high sensitivity, 128 on April 25, 132 on April 26, and 110 today. IMPRESSION: 1. Transient atrial fibrillation. Patient back in sinus rhythm. 2. Recent syncopal episode without loss of pulse. The etiology is not clear, but the patient manifested hyperventilation at the time. Intravascular volume depletion may also have been playing a role. 3. Rectal rectus sheath hematoma. 4. Atherosclerotic coronary disease. Patient may have had some recent angina. 5. Extensive history of peripheral vascular disease and bilateral carotid disease. 6. Diabetes mellitus. 7. Hypertension. 8. Chronic obstructive pulmonary disease. 9. Hyperlipidemia. 10. Head and neck cancer. 11. Recurrent aspiration. RECOMMENDATIONS: 1. Continue to maintain hydration. 2. Resume beta-tony with bisoprolol 5 mg daily, crushed and in soft food. 3. Continue losartan daily. 4. Continue aspirin daily as well. 5. Try and dose as many medications as possible on a once-daily basis and utilize a transdermal route for nitrates. cc: MD Ty Allen MD
--- NOTE | 2019-04-27 19:18 | GASTROENTEROLOGY CONSULTATION ---
DATE: 04/27/2019 HISTORY OF PRESENT ILLNESS: This is a 68-year-old male known to our practice. He was last seen in our office in April 2017 and had subsequent EGD and colonoscopy in May 2017, indications for anemia. EGD findings showed evidence of history of gastrostomy otherwise normal EGD, colonoscopy showed AVM in the cecum that was treated and patient was admitted to the hospital on 04/19/2019 with abdominal pain. Patient had recent upper respiratory infection being treated. He had also been seen by Dr. Wolfe and started on antibiotics and steroids. He had increased coughing and felt something pop in his abdomen. He came in for evaluation and under workup was found to have a rectus sheath hematoma. The patient continues to have bruising at that area. During his hospitalization he has had difficulty eating. Request was made for GI for possible PEG tube placement. Patient has had PEG tube placed several times before in the past due to his history of neck and throat cancer. Last time his PEG tube was removed it did not heal up and had to be stitched. Currently his family is at the bedside and states he had a swallow evaluation this morning and patient did not have any signs of aspiration so they are allowing him to have a mechanical soft diet. Patient's family states he tolerated some pudding earlier before our rounds and patient was also seen by Dr. Cruz. At the time of our rounds the patient had just been seen by wound care and they had examined him. Patient was complaining of some pain after being turned. PAST MEDICAL HISTORY: Ischemic heart disease, history of coronary artery bypass grafting and cardiovascular stent, peripheral artery disease, history of bilateral endarterectomy, history of bilateral [id number] amputation, diabetes, COPD, heart failure, history of tonsillary cancer, history of lymphoma. PAST SURGICAL HISTORY: Bilateral hxufa-[id number] amputations, head and neck surgery, coronary artery bypass grafting, cardiovascular stents, cataract surgery. ALLERGIES: Metformin causing swelling, Crestor causing swelling, morphine causing headache, nitroglycerin causing headache . HOME MEDICATIONS: Amlodipine 5 mg daily, aspirin 81 mg daily, Lipitor 40 mg every night, Wellbutrin XL 450 mg daily, Plavix 75 mg daily, vitamin B12 1000 mcg daily, Colace 50 mg daily, doxycycline 100 mg twice a day, folic acid 1 mg daily, gabapentin 100 mg daily, gabapentin 300 mg at night, Lantus 30 units subcu twice a day, Humalog insulin a.c. and at bedtime, isosorbide mononitrate 20 mg every night, Synthroid 50 mcg daily, Hyzaar 100/25 one daily, Toprol-XL 50 mg daily, Prilosec 30 mg daily, prednisone 15 mg every other day, prednisone 20 mg every other day, Flomax 0.4 mg daily. SOCIAL HISTORY: Smokes 1 pack of cigarettes daily. No reported alcohol use. REVIEW OF SYSTEMS: Per history of present illness. VITAL SIGNS: Temperature 98.2 degrees, pulse 90, respirations 13, blood pressure 179/52.General: Patient was awake, he was in no acute distress. He did report some pain after having evaluation by wound care nurse. Cardiovascular: Regular rate and rhythm. Respiratory: With some rhonchi present. Abdomen: Soft. Some tenderness noted. Bowel sounds present. Extremities: With bilateral [id number]-[id number] amputation. Skin: With bruising right abdomen. LABORATORY: Hematology. WBC 17.39, hemoglobin 9.7, hematocrit 30.3, MCV 102.0, platelet 205,000. Chemistry. Sodium 133, potassium 4.0, chloride 98, CO2 24, BUN 34, creatinine 1.2, glucose 330, total bilirubin 0.49, AST 9, ALT 16, alkaline phosphatase 40. ASSESSMENT AND PLAN: 1. Abdominal pain. 2. Rectus sheath hematoma. Will continue to monitor his hemoglobin and hematocrit, it has been stable over the last several days. 3. Dysphagia/nutritional requirement. Patient has had improvement in his swallowing and was able to tolerate some pudding today. Would recommend to continue Clinimix and we will see how he does with his advancement of his diet. Hopefully we can avoid placing PEG tube, he did have difficulty after the last PEG tube was removed with it healing and had to have stitches placed. 4. Acute chronic obstructive pulmonary disease exacerbation. Continue current management. 5. Other medical problems, coronary artery disease, peripheral vascular disease, diabetes, continue current management. Recommend strict aspiration precautions and strict antireflux measures, have patient sitting up when eating and for at least 1 to 2 hours after eating. Further plans to be made according to his progress. If nutritional status is not adequate would recommend 1st placing nasogastric feeding tube before proceeding with PEG tube. Again will continue to follow and further plans will be made as needed. Patient was also seen by Dr. Cruz. Dictated by KANDIS Wild for Aquiles Cruz MD cc: KANDIS Goddard MD Scott A. Matthews, MD
--- NOTE | 2019-04-27 20:05 | PROGRESS NOTE ---
DATE: 04/27/2019 SUBJECTIVE: Upon my arrival this morning, patient was sitting upright in bed. The patient states he rested reasonably well overnight. He did, however, have an episode of chest discomfort. This proved to be transient. Cardiac enzymes and EKG were performed which revealed no evidence of acute changes. Throughout the day today, patient demonstrated improvement in his overall condition. A swallowing study was performed which demonstrated some improvement from the last several days. His pulmonary condition has also demonstrated slow improvement. This evening, upon my arrival, he was sitting upright with family in the room. He was tolerating a full liquid diet. There has been no evidence of fevers, chills, nausea, vomiting, shortness of breath, or chest discomfort throughout the day today. OBJECTIVE: Vital Signs: T-max 98.6, heart rate 74-90, respirations 15-28, blood pressure 135 to 180/39 to 68. General: Chronically ill appearing, in no acute distress. Cardiovascular: Regular rate and rhythm. No significant murmurs, rubs, or gallops. Pulmonary: Occasional wheeze, improving over the last several days. Adequate air movement. Abdomen: Soft, nontender, nondistended. Positive bowel sounds. Extremities: Patient has bilateral [id number]-vwm-mitr amputations. No significant edema. Dermatologic: Evaluation reveals a large ecchymosis starting in the right upper quadrant extending to the right lower quadrant, right flank, and right lumbar spine. LABORATORY DATA: None. ASSESSMENT AND PLAN: 1. Rectus sheath hematoma--patient's hemoglobin and hematocrit are stable. Aspirin has been resumed. In the near future, I anticipate resuming Plavix therapy. We will continue symptomatic management. 2. Syncopal episode--this likely was a consequence of hyperventilation. He has had no further episodes. 3. Dysphagia--as above, patient did have a swallowing study done today. He is tolerating a full liquid diet. At this point, no indication for PEG tube is noted. I appreciate Dr. Cruz's consultation. Depending on his improvement, we will need to consider whether further gastroenterology intervention is appropriate. 4. Acute exacerbation of chronic obstructive pulmonary disease--the patient's symptoms are improving. We will continue Solu-Medrol, bronchodilators, and Zosyn therapy. 5. Bronchopneumonia--we will continue Zosyn therapy. We will encourage aspiration precautions. 6. Atrial fibrillation with rapid ventricular response--the patient has converted back to a normal sinus rhythm after amiodarone drip. I appreciate Dr. Forbes's consultation. We will continue to follow patient on telemetry. 7. Coronary artery disease--patient has advanced disease. Once he is able to tolerate oral intake, we will resume his home medications with the exception of Plavix. This will be resumed in the near future. 8. Peripheral vascular disease--this is significant. As above, we will plan to resume home medications once able. 9. Type 2 diabetes--blood sugar is trending upwards. We will increase patient's Lantus to 20 units at bedtime. We will continue sliding scale insulin. 10. Hypertension--the patient's blood pressure is also trending upwards. I anticipate with improvement in his swallowing, blood pressure medications will resume with improvement in his blood pressure management. 11. Bolus pemphigoid--we will continue patient on steroids and doxycycline therapy. 12. Hyperlipidemia--we will plan to resume atorvastatin therapy once able. 13. Hypothyroidism--we will resume levothyroxine replacement once able. 14. Acute on chronic kidney disease--the patient's creatinine had improved to 1.2 as of last evaluation. We will recheck this in the a.m. 15. Disposition--at this point patient continues to require detention care in the hospital setting. We will plan discharge to rehabilitation once appropriate. cc: Ty Forrest MD
[2019-04-27] MEDS: LIPITOR PO SCH (20:12)
[2019-04-27] MEDS: LANTUS INSULIN SUBQ SCH (20:13)
[2019-04-28] MEDS: ZOSYN 3.375 GM in NS 50 ML IV SCH ×4 (02:46→20:14)
[2019-04-28] MEDS: SODIUM CHLORIDE 75 MEQ in CLINIMIX E 4.25%-5% SOLUTION 1,000 ML IV SCH ×2 (02:47→22:45)
[2019-04-28] MEDS: DUONEB (A & A) INH SCH ×6 (03:32→23:28)
[2019-04-28] MEDS: DILAUDID IV PRN ×3 (04:58→22:53)
[2019-04-28] MEDS: PRILOSEC PO SCH (06:06)
[2019-04-28] MEDS: SOLU-MEDROL IV SCH ×2 (06:06→17:57)
[2019-04-28] MEDS: SYNTHROID PO SCH (06:06)
[2019-04-28] MEDS: HUMALOG SUBQ SCH ×4 (06:07→20:15)
[2019-04-28] MEDS ORDERED: ASPIRIN PO SCH (09:00)
[2019-04-28 09:33] LABS: BASO# 0.01 X1000 (0.0-0.2); BASO% 0.1 % (0.0-0.8); HEMATOCRIT 31.4 % (42.0-52.0); HEMOGLOBIN 9.9 g/dL (14.0-18.0); IMM GRAN# 0.12 X1000 (0.0-0.04); IMM GRAN% 0.6 % (0.0-0.5); LYMPH# 0.49 X1000 (1.2-3.4); LYMPH% 2.5 % (20.5-51.1); MCH 32.1 PG (27-31); MCHC 31.5 g/dL (33-37); MCV 101.9 FL (81-99); MONO# 0.45 X1000 (0.11-0.59); MONO% 2.3 % (1.7-9.3); MPV 11.2 FL (7.4-10.4); NEUT# 18.17 X1000 (1.4-6.5); NEUT% 94.5 % (42.2-75.2); PLT 226 X1000 (130-400); RBC 3.08 XMIL (4.7-6.1); RDW 14.7 % (11.5-14.5); WBC 19.24 X1000 (4.8-10.8)
[2019-04-28] MEDS: NEURONTIN PO SCH ×2 (09:42→20:15)
[2019-04-28] MEDS: WELLBUTRIN XL PO SCH (09:42)
[2019-04-28] MEDS: ASPIRIN PO SCH (09:42)
[2019-04-28 09:43] LABS: AGAP 7; ALB/GLOB RATIO 1.6; ALKALINE PHOSPHATASE 41 U/L (32-122); BUN 39 mg/dL (8-22); CALCIUM 8.9 mg/dL (8.8-10.2); CHLORIDE 104 mmol/L (98-107); COSMO 287; ESTIMATED GFR > 60; GLUCOSE 265 mg/dL (70-104); GOT 10 U/L (10-34); GPT 15 U/L (10-44); POTASSIUM 4.9 mmol/L (3.5-5.1); SODIUM 134 mmol/L (136-145); TCO2 23 mmol/L (25-35); TOTAL BILIRUBIN 0.64 mg/dL (0.20-1.00); TOTAL PROTEIN 4.9 g/dL (6.3-8.3)
[2019-04-28] MEDS: MYCOSTATIN SUSP PO SCH ×4 (09:43→20:14)
[2019-04-28] MEDS: PERICOLACE PO SCH ×2 (09:43→20:14)
[2019-04-28] MEDS: FLOMAX PO SCH (09:43)
[2019-04-28] MEDS: DOXYCYCLINE PO SCH ×2 (09:43→20:15)
[2019-04-28] MEDS: FOLIC ACID PO SCH (09:43)
[2019-04-28] MEDS: VITAMIN B-12 PO SCH (09:43)
[2019-04-28] MEDS: COZAAR PO SCH (09:43)
[2019-04-28] MEDS: KLONOPIN PO SCH ×2 (09:43→20:25)
[2019-04-28] MEDS: NS 1,000 ML IV SCH ×2 (09:44→18:07)
[2019-04-28] MEDS: MIRALAX PO SCH ×2 (09:45→20:15)
[2019-04-28] MEDS: NITROGLYCERIN 0.2 MG/HR PATCH TD SCH (09:46)
[2019-04-28] MEDS: NICODERM PATCH TD SCH (09:52)
[2019-04-28] MEDS: ZEBETA PO SCH (09:52)
--- NOTE | 2019-04-28 10:16 | PROGRESS NOTE ---
DATE: 04/28/2019 SUBJECTIVE: Upon my arrival this morning, patient was again upright in attempting to eat breakfast. While he was having some difficulty, he had tolerated his pudding and several bites of his oats. His posterior pharyngeal pain has improved considerably. He notes his pulmonary status also to be improving with decreasing shortness of breath and wheezing. He denies fevers, chills, nausea, vomiting, or chest discomfort. He has remained in a sinus-generated rhythm over the course of the last 24 hours. OBJECTIVE: T-max 98.7 degrees, heart rate 60 to 74, respirations 10 to 17, blood pressure 151 to 180 over 49 to 82.General: Chronically ill appearing, no acute distress. Cardiovascular: Regular rate and rhythm. No significant murmurs, rubs, or gallops. Pulmonary: Minimal wheezing. Adequate air movement. Minimal wheezing bilaterally. Adequate air movement. Abdomen: Soft. Tender at the area of his hematoma. No deep tenderness, guarding, or rebound. Positive bowel sounds. Extremities: The patient is a bilateral above the knee amputee without edema. Dermatologic: Evaluation reveals a large ecchymosis of the anterior abdomen, right flank, and right lumbar spine area. LABORATORY DATA: White blood cell count 19.24, hemoglobin 9.9, hematocrit 31.4, platelet count 226,000. CMP is pending. ASSESSMENT AND PLAN: 1. Rectus sheath hematoma - the patient's hemoglobin and hematocrit remain stable. He continues to have considerable pain, although this is improving. As he is beginning to tolerate oral intake, we will attempt to transition patient from Dilaudid to Jesse therapy. The patient's aspirin has been resumed by Cardiology. In the next several days, we will consider resuming Plavix for cardiac protection. 2. Syncopal episode - this likely was a consequence of hyperventilation. He has had no further episodes. We will continue to monitor patient in the ICU/PVC setting. 3. Dysphagia - patient has longstanding dysphagia secondary to his previous head and neck cancer and associated radiation. Upon admission, he was able to tolerate enough to maintain his weight. While hospitalized, patient's condition progressed. Until yesterday, patient was unable to tolerate anything p.o. Yesterday, he did demonstrate some improvement. Swallowing study suggested that he was able to swallow some thickened liquids. At this point, we will continue supportive care. Dr. Cruz was consulted yesterday, but PEG tube intervention has not been recommended to date. We will continue aspiration precautions and follow closely. 4. Acute exacerbation of chronic obstructive pulmonary disease - pulmonary symptoms continue to improve. We will continue Solu-Medrol, bronchodilators, and Zosyn therapy. In the next several days, we will likely be able to decrease his steroids as he does demonstrate further improvement. 5. Bronchopneumonia - we will continue Zosyn therapy. Again, clinically he is improving. White blood cell count is elevated today, however I suspect this may be secondary to demargination in the setting of steroid use. 6. Atrial fibrillation with rapid ventricular response - patient was treated with an amiodarone drip by Dr. Forbes. This has since been discontinued. He is maintaining normal sinus rhythm. We will attempt to resume his home medications today as his swallowing is improving. 7. Coronary artery disease - patient has advanced, diffuse disease. Again, we will attempt to resume his home medications with the exception of Plavix. Over the course of the next several days, we will plan to resume this as well. 8. Peripheral vascular disease - patient has significant disease. As above, we will resume medications as able. 9. Type 2 diabetes - patient's blood sugars are trending upwards. We will increase his Lantus to 20 units at bedtime. We will continue sliding scale insulin. 10. Hypertension - The patient's blood pressure is also trending upwards. I suspect with resuming his home medications, this will also be better controlled. 11. Bullous pemphigoid - patient is being treated with steroids and doxycycline therapy per Dr. Padron. We will continue this. 12. Hyperlipidemia - we will resume atorvastatin therapy this evening as he can tolerate. 13. Hypothyroidism - we will resume levothyroxine this morning if he is able tolerate. If not, we will consider an IV alternative. 14. Acute on chronic kidney disease - patient's creatinine had improved to 1.2 as of last evaluation. We will recheck labs today. 15. Leukocytosis - as above, this likely is a consequence of demargination as his clinical condition is improving. We will, however, remain aware this may be secondary to underlying infection. 16. Disposition. At this point, patient continues to require senior care care in the ICU setting. Orders have been arranged for him to move to the [facility] unit if a bed becomes available. cc: Ty Forrest MD
[2019-04-28 11:39] LABS: BANDS 2 % (0-1); LYMPHS 2 % (21-51); SEGS 96 % (42-75)
[2019-04-28] MEDS: NORCO-7.5 PO PRN (11:59)
--- NOTE | 2019-04-28 15:41 | GASTROENTEROLOGY PROGRESS NOTE ---
DATE: 04/28/2019 Mr. Martinez is sitting up in his bed. He is slightly confused and has been complaining of phantom pain in his lower extremity, which has been amputated. He is also complaining of some generalized discomfort in his body. However, he has been able to swallow better. He is tolerating GI soft diet and some liquids also. He has not had any dysphagia or odynophagia. From GI perspective, his swallowing has improved. I would continue to follow and depending on his progress, further plans will be made. cc: MD Ty Willett MD
[2019-04-28] MEDS: LANTUS INSULIN SUBQ SCH (20:15)
[2019-04-28] MEDS: LIPITOR PO SCH (20:15)
[2019-04-29] MEDS: ZOSYN 3.375 GM in NS 50 ML IV SCH ×4 (02:56→21:08)
[2019-04-29] MEDS: DUONEB (A & A) INH SCH ×6 (04:03→23:38)
[2019-04-29] MEDS: PRILOSEC PO SCH (06:11)
[2019-04-29] MEDS: HUMALOG SUBQ SCH ×4 (06:11→21:10)
[2019-04-29] MEDS: SYNTHROID PO SCH (06:11)
[2019-04-29] MEDS: SOLU-MEDROL IV SCH ×2 (06:15→17:01)
[2019-04-29 06:37] LABS: HEMATOCRIT 30.6 % (42.0-52.0); HEMOGLOBIN 9.6 g/dL (14.0-18.0); IMM GRAN# 0.08 X1000 (0.0-0.04); IMM GRAN% 0.8 % (0.0-0.5); LYMPH# 0.34 X1000 (1.2-3.4); LYMPH% 3.3 % (20.5-51.1); MCH 31.8 PG (27-31); MCHC 31.4 g/dL (33-37); MCV 101.3 FL (81-99); MONO# 0.36 X1000 (0.11-0.59); MONO% 3.5 % (1.7-9.3); MPV 11.8 FL (7.4-10.4); NEUT# 9.45 X1000 (1.4-6.5); NEUT% 92.4 % (42.2-75.2); PLT 199 X1000 (130-400); RBC 3.02 XMIL (4.7-6.1); RDW 14.5 % (11.5-14.5); WBC 10.23 X1000 (4.8-10.8)
[2019-04-29 07:00] LABS: AGAP 10; ALB/GLOB RATIO 1.4; ALBUMIN 2.8 g/dL (3.5-5.0); ALKALINE PHOSPHATASE 35 U/L (32-122); BUN 41 mg/dL (8-22); CALCIUM 8.6 mg/dL (8.8-10.2); CHLORIDE 106 mmol/L (98-107); COSMO 294; CREATININE 1.1 mg/dL (0.7-1.2); ESTIMATED GFR > 60; GLUCOSE 215 mg/dL (70-104); GOT 10 U/L (10-34); GPT 15 U/L (10-44); POTASSIUM 4.5 mmol/L (3.5-5.1); SODIUM 139 mmol/L (136-145); TCO2 23 mmol/L (25-35); TOTAL BILIRUBIN 0.54 mg/dL (0.20-1.00); TOTAL PROTEIN 4.8 g/dL (6.3-8.3)
[2019-04-29] MEDS: WELLBUTRIN XL PO SCH (09:54)
[2019-04-29] MEDS: NICODERM PATCH TD SCH (09:54)
[2019-04-29] MEDS: MIRALAX PO SCH ×2 (09:54→21:10)
[2019-04-29] MEDS: MYCOSTATIN SUSP PO SCH ×4 (09:54→21:10)
[2019-04-29] MEDS: FLOMAX PO SCH (09:55)
[2019-04-29] MEDS: VITAMIN B-12 PO SCH (09:55)
[2019-04-29] MEDS: FOLIC ACID PO SCH (09:55)
[2019-04-29] MEDS: COZAAR PO SCH (09:55)
[2019-04-29] MEDS: NEURONTIN PO SCH ×2 (09:55→21:09)
[2019-04-29] MEDS: ASPIRIN PO SCH (09:55)
[2019-04-29] MEDS: ZEBETA PO SCH (09:55)
[2019-04-29] MEDS: DOXYCYCLINE PO SCH ×2 (09:55→21:09)
[2019-04-29] MEDS: PERICOLACE PO SCH ×2 (09:55→21:09)
[2019-04-29] MEDS: NITROGLYCERIN 0.2 MG/HR PATCH TD SCH (09:56)
[2019-04-29] MEDS: KLONOPIN PO SCH ×2 (10:07→21:09)
[2019-04-29] MEDS: DILAUDID IV PRN ×2 (10:08→18:34)
[2019-04-29] MEDS: NS 1,000 ML IV SCH (10:31)
--- NOTE | 2019-04-29 13:46 | PROGRESS NOTE ---
DATE: 04/29/2019 SUBJECTIVE: The patient is asleep in the bed when I came in but he is easily arousable and I asked him how it was going. He stated that he feels overall he is getting better. He is not having any respiratory difficulty. Early this morning he began struggling to have a bowel movement and eventually had a significant stool output, although he states that it "hurt him bad." He is reasonably comfortable now and complains of no other difficulty at present time. I spoke at length with the nurse as to his progress. Temperature is 98.7 degrees. OBJECTIVE: Vital Signs: Temperature 98.7, 66, 12, 153/62, 94% saturated on room air. General: The patient has bilateral mild expiratory wheeze but good air movement. No crackles. Cardiovascular: Regular. Abdomen: Protuberant. Bowel sounds are present. Neurologic: The patient seems to be grossly intact. His speech is clear. Cranial nerves show no deficits. LABORATORY: White cell count 10.3, hemoglobin 9.6, BUN 41, creatinine 1.1. Blood sugars are in the 250 to 350 range. ASSESSMENT AND PLAN: 1. The patient's rectus sheath hematoma has been addressed. Hemoglobin, hematocrit are stable. He still has considerable pain. The nurse reported giving him Dilaudid twice today, Balmorhea once. Aspirin has been held as well as Plavix. 2. The patient had a syncopal episode that was a consequence of hyperventilation. No further episodes have been reported by the nursing staff. 3. The patient had transient dysphagia but this seems to have resolved. He is using thickened liquids. 4. The patient had acute exacerbation of chronic obstructive pulmonary disease. He is on Solu- Medrol, bronchodilators, Zosyn therapy, seems to be improving compared to previous exams as documented. 5. The patient has a history of atrial fibrillation with rapid ventricular response. His present heart rate seemed very regular at 66 at time my examination. Monitoring shows a fairly regular rhythm on the waveforms. 6. Coronary artery disease. Aware. 7. Peripheral vascular disease. Aware. 8. Patient's type 2 diabetes been treating with Lantus and sliding scale. 9. Hypertension. Aware. 10. The patient's chronic kidney disease is noted. He is roughly at baseline as far as BUN and creatinine. 11. The patient's other chronic medical problems are duly noted as documented in Dr. Forrest' note. 12. The patient has orders to be transferred to [facility] but I agree with Dr. Forrest' assessment that he needs too much care to be relegated to the floor. cc: MD Ty Wilkinson MD
--- NOTE | 2019-04-29 14:34 | GASTROENTEROLOGY PROGRESS NOTE ---
DATE: 04/29/2019 SUBJECTIVE: Patient was awake and alert at the time of my visit. He does complain of some back pain and stomach pain. Per intake and output report, he ate about 50% of his breakfast. Nurse states he does well as long as he takes small bites and takes his time eating. OBJECTIVE: Vital Signs: Temperature 98.7 degrees, pulse 70, respirations 18, blood pressure 153/62. General: The patient is awake, he is sitting up in the bed with the head of bed elevated. Abdomen: With bruising noted otherwise soft. LABORATORY: Hematology. WBC 10.23, hemoglobin 9.6, hematocrit 30.6, MCV 101.3, platelet 199,000. Chemistry. Sodium 139, potassium 4.5, chloride 106, CO2 23, BUN 41, creatinine 1.1, glucose 215. ASSESSMENT AND PLAN: 1. Rectus sheath hematoma. His hemoglobin and hematocrit have been stable. 2. Dysphagia. He is currently tolerating a mechanical soft diet. Recommend strict aspiration precautions and strict anti-reflux measures. OTHER MEDICAL PROBLEMS: 1. Acute exacerbation/chronic chronic obstructive pulmonary disease, continue respiratory management. 2. Pneumoniae. Continue antibiotics. 3. Atrial fibrillation. Patient has been followed by Cardiology/coronary artery disease and peripheral vascular disease. 4. Other medical problems per medical team. We will continue to follow his dysphagia. Hopefully he will not have to have an NG tube feeding or PEG tube placed. I have discussed this case with Dr. Cruz. Dictated by KANDIS Wild for Aquiles Cruz MD cc: KANDIS Goddard MD Scott A. Matthews, MD
[2019-04-29] MEDS: SODIUM CHLORIDE 75 MEQ in CLINIMIX E 4.25%-5% SOLUTION 1,000 ML IV SCH (16:55)
[2019-04-29] MEDS: LANTUS INSULIN SUBQ SCH (21:09)
[2019-04-29] MEDS: LIPITOR PO SCH (21:09)
[2019-04-30] MEDS: ZOSYN 3.375 GM in NS 50 ML IV SCH ×4 (02:15→21:58)
[2019-04-30] MEDS: DUONEB (A & A) INH SCH ×6 (03:42→22:50)
[2019-04-30] MEDS: HUMALOG SUBQ SCH ×4 (06:14→21:59)
[2019-04-30] MEDS: SYNTHROID PO SCH (06:14)
[2019-04-30] MEDS: PRILOSEC PO SCH (06:14)
[2019-04-30] MEDS: SOLU-MEDROL IV SCH ×2 (06:14→18:50)
[2019-04-30] MEDS: DOXYCYCLINE PO SCH ×2 (09:49→22:00)
[2019-04-30] MEDS: ASPIRIN PO SCH (09:49)
[2019-04-30] MEDS: KLONOPIN PO SCH ×2 (09:49→22:01)
[2019-04-30] MEDS: FOLIC ACID PO SCH (09:49)
[2019-04-30] MEDS: WELLBUTRIN XL PO SCH (09:49)
[2019-04-30] MEDS: ZEBETA PO SCH (09:49)
[2019-04-30] MEDS: NEURONTIN PO SCH ×2 (09:50→22:23)
[2019-04-30] MEDS: FLOMAX PO SCH (09:51)
[2019-04-30] MEDS: PERICOLACE PO SCH ×2 (09:51→21:56)
[2019-04-30] MEDS: COZAAR PO SCH (09:51)
[2019-04-30] MEDS: VITAMIN B-12 PO SCH (09:51)
[2019-04-30] MEDS: NITROGLYCERIN 0.2 MG/HR PATCH TD SCH (09:52)
[2019-04-30] MEDS: NICODERM PATCH TD SCH (09:52)
[2019-04-30] MEDS: MIRALAX PO SCH ×2 (09:52→22:01)
[2019-04-30] MEDS: MYCOSTATIN SUSP PO SCH ×4 (09:52→21:58)
[2019-04-30] MEDS: DILAUDID IV PRN ×2 (11:56→14:32)
--- NOTE | 2019-04-30 14:55 | GASTROENTEROLOGY PROGRESS NOTE ---
DATE: 04/30/2019 SUBJECTIVE: The patient was sitting up in the bed. His daughter was at the bedside who is a nurse. She had helped him get a bath. He states he is very weak. He has had some shortness of breath and pain after getting a bath. Otherwise he feels that he is improving. He was able to tolerate some of his breakfast. OBJECTIVE: Vital Signs: Temperature 97.8 degrees, pulse 73, respirations 16, blood pressure 156/57. General: Patient is awake and alert. He is sitting in the bed. He had just gotten a shower. He states he is very weak. LABORATORY: Hematology: WBC 10.23, hemoglobin 9.6, hematocrit 30.6, MCV 101.3. Chemistry: Sodium 139, potassium 4.5, chloride 106, CO2 of 23, BUN 41, creatinine 1.1, glucose 215. ASSESSMENT AND PLAN: 1. Acute exacerbation of chronic obstructive pulmonary disease. Continue respiratory management. 2. Rectus sheath hematoma. Continue with p.r.n. pain medication as needed. 3. Dysphagia is improving. Patient is currently tolerating his diet. 4. Pneumonia, on antibiotics. 5. We will continue to follow during the patient's hospital course. He is improving. I have ordered a restart on his physical therapy to work on strength training. Further plans to be made as needed. 6. I have discussed this case with Dr. Cruz. Dictated by KANDIS Wild for Aquiles Cruz MD cc: KANDIS Goddard MD Scott A. Matthews, MD [facility] CENTERDebra
[2019-04-30] MEDS: NORCO-7.5 PO PRN ×2 (15:48→21:56)
[2019-04-30] MEDS: NS 1,000 ML IV SCH (16:01)
[2019-04-30] MEDS: KENALOG 0.1% CREAM TOP SCH ×2 (16:03→21:59)
--- NOTE | 2019-04-30 17:00 | PROGRESS NOTE ---
DATE: 04/30/2019 SUBJECTIVE: The patient states he is breathing fairly well. He has no complaints. His daughter is present during my interview and examination. We spoke at length. Over the course of the day, the patient underwent some physical therapy, was able to get up and get bathed or showered and then called for pain medication. After receiving some Dilaudid, he told the nurse that it "was not enough" and requested additional pain medications. He had other p.r.n.'s written for him and took those. OBJECTIVE: Vital Signs: 97.8, 73, 16, 156/57. Lungs: At the time of my examination, the patient's lungs were clear today. He did not have the end-expiratory wheezing that he had previously. Cardiovascular: He is regular. Dermatologic: I looked at the patient's abdomen and there does not appear to be the start of any resolution of the ecchymosis that is in the periumbilical area spreading towards the right flank. 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 It is perfectly round and I do not think this represents 1 of his bullous pemphigoid lesions. LABORATORY: The patient did not have laboratory today. The lab work from yesterday showed a white cell count of 10.2, hematocrit 30.6, BUN 41, creatinine 1.1. We did note that the patient's blood sugar was up yesterday and all fingersticks are still in the 200s range. ASSESSMENT/PLAN: 1. The patient's rectus sheath hematoma will be slow to resolve. He is still off of anticoagulation. 2. The patient has had no further syncopal episodes. 3. The patient is eating and drinking and taking medications. His dysphagia appears to have resolved. Dr. Cruz has been consulted and is following. 4. The patient's acute exacerbation chronic obstructive pulmonary disease seems to be improving. Yesterday his wheezing was minimal, but still present today. He is without wheezing. I had reduced his Solu-Medrol and will likely do so again today. He will continue on bronchodilators and Zosyn therapy. 5. The patient had transient atrial fibrillation which was treated with amiodarone. He appears to have maintained a sinus rhythm according to the rhythm strips I saw and according to my examination. Now that he is swallowing, his home medications have been resumed. 6. Ischemic heart disease. Aware. 7. Peripheral vascular disease. Aware. 8. Type 2 diabetes, poorly controlled. I had hoped that the reduction in steroids would show improved control and indeed it is down a little bit. We may need some further tweaking on his insulin regimen to maintain better control and allow for better wound healing and overall recovery. 9. Hypertension. Levels are adequate, but less than ideal. Not sure that it will get much better with any massive nebulization medications. 10. Hyperlipidemia. Aware. 11. Hypothyroidism. Aware. I believe the patient is back on his levothyroxine dose. 12. The patient was transferred to the PVC unit yesterday. He seems to be doing well and we will continue other therapeutic modalities to aid in his recovery. He still requires assisted care in the hospital. cc: MD Ty Wilkinson MD
[2019-04-30] MEDS: SODIUM CHLORIDE 75 MEQ in CLINIMIX E 4.25%-5% SOLUTION 1,000 ML IV SCH (17:12)
[2019-04-30] MEDS: LIPITOR PO SCH (21:56)
[2019-04-30] MEDS: LANTUS INSULIN SUBQ SCH (22:01)
[2019-05-01] MEDS: DUONEB (A & A) INH SCH ×6 (02:59→23:13)
[2019-05-01] MEDS: ZOSYN 3.375 GM in NS 50 ML IV SCH ×4 (03:34→21:56)
[2019-05-01] MEDS: SYNTHROID PO SCH (06:29)
[2019-05-01] MEDS: SOLU-MEDROL IV SCH ×2 (06:29→17:09)
[2019-05-01] MEDS: PRILOSEC PO SCH (06:29)
[2019-05-01 06:43] LABS: ALB/GLOB RATIO 1.7; ALBUMIN 2.7 g/dL (3.5-5.0); CALCIUM 8.3 mg/dL (8.8-10.2); CREATININE 1.2 mg/dL (0.7-1.2); POTASSIUM 4.4 mmol/L (3.5-5.1); TOTAL BILIRUBIN 0.36 mg/dL (0.20-1.00); TOTAL PROTEIN 4.3 g/dL (6.3-8.3)
[2019-05-01 06:45] LABS: EOS# 0.01 X1000 (0.0-0.7); EOS% 0.1 % (0.0-10.0); HEMATOCRIT 28.5 % (42.0-52.0); HEMOGLOBIN 8.9 g/dL (14.0-18.0); IMM GRAN# 0.08 X1000 (0.0-0.04); IMM GRAN% 0.8 % (0.0-0.5); LYMPH# 0.33 X1000 (1.2-3.4); LYMPH% 3.3 % (20.5-51.1); MCH 31.6 PG (27-31); MCHC 31.2 g/dL (33-37); MCV 101.1 FL (81-99); MONO# 0.53 X1000 (0.11-0.59); MONO% 5.3 % (1.7-9.3); MPV 11.4 FL (7.4-10.4); NEUT# 9.04 X1000 (1.4-6.5); NEUT% 90.5 % (42.2-75.2); PLT 180 X1000 (130-400); RBC 2.82 XMIL (4.7-6.1); RDW 14.4 % (11.5-14.5); WBC 9.99 X1000 (4.8-10.8)
[2019-05-01] MEDS: HUMALOG SUBQ SCH ×4 (06:46→21:58)
[2019-05-01] MEDS: WELLBUTRIN XL PO SCH (09:45)
[2019-05-01] MEDS: ZEBETA PO SCH (09:45)
[2019-05-01] MEDS: KLONOPIN PO SCH ×2 (09:46→21:56)
[2019-05-01] MEDS: NEURONTIN PO SCH ×2 (09:46→21:57)
[2019-05-01] MEDS: FLOMAX PO SCH (09:46)
[2019-05-01] MEDS: DOXYCYCLINE PO SCH ×2 (09:46→21:57)
[2019-05-01] MEDS: FOLIC ACID PO SCH (09:47)
[2019-05-01] MEDS: ASPIRIN PO SCH (09:47)
[2019-05-01] MEDS: PERICOLACE PO SCH ×2 (09:47→21:56)
[2019-05-01] MEDS: VITAMIN B-12 PO SCH (09:47)
[2019-05-01] MEDS: MYCOSTATIN SUSP PO SCH ×4 (09:48→21:57)
[2019-05-01] MEDS: MIRALAX PO SCH ×2 (09:48→21:57)
[2019-05-01] MEDS: NITROGLYCERIN 0.2 MG/HR PATCH TD SCH (09:48)
[2019-05-01] MEDS: NICODERM PATCH TD SCH (09:48)
[2019-05-01] MEDS: KENALOG 0.1% CREAM TOP SCH ×3 (09:48→20:15)
[2019-05-01] MEDS: COZAAR PO SCH (09:54)
--- NOTE | 2019-05-01 12:54 | GASTROENTEROLOGY PROGRESS NOTE ---
DATE: 05/01/2019 SUBJECTIVE: The patient was sitting up in the bed, in no acute distress. He states he feels like he overdid it yesterday with physical therapy, and getting up and taking a shower. He is tolerating his diet. He is complaining of some pain today. OBJECTIVE: Vital Signs: Temperature 97.6 degrees, pulse 73, respirations 18, blood pressure 165/50. General: The patient is awake and alert, in no acute distress. Abdomen: With bruising noted. Some tenderness. Otherwise soft. Laboratory: Hematology: WBC 9.99, hemoglobin 8.9, hematocrit 28.5, MCV 101.1, platelets 180,000. Chemistry: Sodium 138, potassium 4.4, chloride 107, CO2 of 21, BUN 46, creatinine 1.2, glucose 275. Total bilirubin 0.36, AST 9, ALT 17, alkaline phosphatase 34. ASSESSMENT AND PLAN: 1. Rectus sheath hematoma. 2. Chronic obstructive pulmonary disease exacerbation. 3. Dysphagia, has improved. He is currently tolerating a gastrointestinal soft/diabetic diet. Continue to follow strict antireflux measures and strict aspiration precautions. 4. Continue to work with physical therapy. Further plans to be made according to his progress. I have discussed this case with Dr. Cruz. Dictated by KANDIS Wild for Aquiles Cruz MD cc: KANDIS Goddard MD Scott A. Matthews, MD
[2019-05-01] MEDS: NORCO-7.5 PO PRN ×2 (14:16→22:09)
[2019-05-01] MEDS: DILAUDID IV PRN ×2 (14:53→20:06)
--- NOTE | 2019-05-01 20:37 | PROGRESS NOTE ---
DATE: 05/01/2019 SUBJECTIVE: The patient's chart was reviewed. Over the course of the last 2 days, the patient was transitioned out of the intensive care unit. His dysphagia has demonstrated significant improvement. Pulmonary status also continues to improve. This morning, upon my arrival, he was sitting upright in bed. The patient stated he was tired, but overall felt reasonably well. During the day today, patient states that he rolled in the bed and developed extreme pain to his right upper quadrant as well as left lower quadrants. He is was treated with Dilaudid therapy with significant improvement. He denies fevers, chills, nausea, or vomiting associated. This evening, upon my arrival, the patient states he is feeling reasonably well. He just experienced an episode of aspiration which resulted in significant coughing. He has cleared this insult. He attributed this to the type of food he was eating. He continues to deny fevers or chills. His shortness of breath, continues to improve. OBJECTIVE: T-max 97.6 degrees, heart rate 65 to 73, respirations 14 to 20, blood pressure 120 to 170 over 46 to 71.General: Chronically ill-appearing, in no acute distress. Cardiovascular: Regular rate and rhythm. No significant murmurs, rubs, or gallops. Pulmonary: Clear to auscultation bilaterally. Abdomen: Soft, tenderness to palpation at the area of his hematoma. No guarding or rebound. Positive bowel sounds. Extremities: The patient is status post bilateral above the knee amputations. The patient does have 1+ lower extremity edema bilaterally. Dermatologic: Evaluation reveals a large ecchymosis to the abdominal wall extending to his right flank, improved over the last several days. LABORATORY DATA: White blood cell count 9.99, hemoglobin 8.9, hematocrit 28.5, platelet count 180,000. Sodium 138, potassium 4.4, chloride 21, bicarb 10, BUN 46, creatinine 1.2, glucose 275. Calcium 8.3, total bilirubin 0.36, total protein 4.3, alkaline phosphatase 34. AST 9, ALT 7. ASSESSMENT AND PLAN: 1. Rectus sheath hematoma - The patient's hemoglobin and hematocrit remain stable. Aspirin has been resumed. Plavix has yet to be resumed. For now, we will continue symptomatic management. Over the course of the next several days, we will plan to resume Plavix intervention. 2. Syncopal episode - This was a result of hyperventilation. He has not had a repeat episode while hospitalized. 3. Dysphagia - I am very encouraged with patient's improvement over the course of the last several days. We will continue to advance diet as tolerated. At this point, it does not appear, a PEG tube is in the imminent future. 4. Acute exacerbation of chronic obstructive pulmonary disease - Overall, patient's symptoms are significantly improved. His Solu-Medrol has been decreased to 20 mg q.12 hours. We will extend his nebulized albuterol and Atrovent every 6 hours. We will encourage aspiration precautions. 5. Bronchopneumonia - We will continue the patient on Zosyn and doxycycline therapy. 6. Atrial fibrillation with rapid ventricular response - The patient was transiently treated with an amiodarone drip. He has converted back to a sinus-generated rhythm. We will continue his home medical regimen. 7. Coronary artery disease - The patient has extensive disease. We will continue his optimized medical regimen with the exception of Plavix. As above, we will plan to resume this in the near future. 8. Peripheral vascular disease - The patient has advanced disease. We will continue to optimize medical management. 9. Type 2 diabetes - Blood sugars have trended upwards. I suspect with titrating off of steroids this will further improve. For now, we will continue Lantus and sliding scale insulin. 10. Hypertension - The patient's blood pressure is labile, but reasonably controlled at present time. We will continue his current regimen. 11. Bolus pemphigoid - We will continue steroids and doxycycline therapy. 12. Hyperlipidemia - We will continue atorvastatin therapy. 13. Hypothyroidism - The patient is treated with levothyroxine replacement. This will be continued as well. 14. Acute on chronic kidney disease - The patient's creatinine today is 1.2. We will continue to encourage hydration. 15. Leukocytosis - The patient has achieved improvement with time and medical intervention. 16. Volume overload - The patient appears to be mildly volume overload today. We will discontinue Clinimix and IV fluids. We will follow this. 17. Disposition - At this point, patient continues to require detention care in a hospital setting. We will plan discharge home once appropriate. cc: Ty Forrest MD
[2019-05-01] MEDS: LIPITOR PO SCH (21:56)
[2019-05-01] MEDS: LANTUS INSULIN SUBQ SCH (21:57)
[2019-05-02] MEDS: ZOSYN 3.375 GM in NS 50 ML IV SCH ×4 (03:11→22:04)
[2019-05-02] MEDS: DUONEB (A & A) INH SCH ×4 (03:45→22:47)
[2019-05-02] MEDS: HUMALOG SUBQ SCH ×4 (06:26→22:06)
[2019-05-02] MEDS: SYNTHROID PO SCH (06:30)
[2019-05-02] MEDS: PRILOSEC PO SCH (06:30)
[2019-05-02] MEDS: SOLU-MEDROL IV SCH (06:30)
[2019-05-02] MEDS: PERICOLACE PO SCH ×2 (09:51→22:05)
[2019-05-02] MEDS: KLONOPIN PO SCH ×2 (09:51→22:06)
[2019-05-02] MEDS: DOXYCYCLINE PO SCH ×2 (09:51→22:06)
[2019-05-02] MEDS: KENALOG 0.1% CREAM TOP SCH ×3 (09:51→22:04)
[2019-05-02] MEDS: FOLIC ACID PO SCH (09:51)
[2019-05-02] MEDS: MIRALAX PO SCH ×3 (09:51→22:12)
[2019-05-02] MEDS: ZEBETA PO SCH (09:51)
[2019-05-02] MEDS: NEURONTIN PO SCH ×2 (09:51→22:06)
[2019-05-02] MEDS: MYCOSTATIN SUSP PO SCH ×4 (09:51→22:06)
--- NOTE | 2019-05-02 09:51 | Diag Imaging Result Doc PS360 ---
EXAM: CHEST-PORTABLE HISTORY: pneumonia TECHNIQUE: Single view COMPARISON: 04/23/2019 FINDINGS: The lungs are well expanded. The heart is mildly enlarged. There are sternal wires. The vessels are not distended. Mild increased interstitial markings in the left lung base. No effusion identified. IMPRESSION: Resolution of the pulmonary edema. Interval improvement in the infiltrates. Electronically signed by Danial Grace 05/02/2019 9:49 AM
[2019-05-02] MEDS: FLOMAX PO SCH (09:52)
[2019-05-02] MEDS: NICODERM PATCH TD SCH (09:52)
[2019-05-02] MEDS: WELLBUTRIN XL PO SCH (09:52)
[2019-05-02] MEDS: COZAAR PO SCH (09:53)
[2019-05-02] MEDS: VITAMIN B-12 PO SCH (09:53)
[2019-05-02] MEDS: IMDUR PO SCH (09:53)
[2019-05-02] MEDS: ASPIRIN PO SCH (09:53)
[2019-05-02] MEDS: DILAUDID IV PRN (15:16)
--- NOTE | 2019-05-02 18:20 | PROGRESS NOTE ---
DATE: 05/02/2019 SUBJECTIVE: Upon my arrival this morning, patient was sitting upright in bed. Overall, patient states his condition has improved. He notes decreasing shortness of breath. P.o. intake this morning was reasonable. Throughout the day, the patient noted stability in his overall condition. He states he did attempt to transition to a wheelchair from his bed with assistance. Patient noted this to be very difficult, much more so than his baseline. This evening, he states he is quite tired from this attempt. He denies fevers, chills, nausea, vomiting, shortness of breath, or chest discomfort. Thus far, he is tolerating p.o. reasonably well. OBJECTIVE: Vital signs: T-max 98.4 degrees, heart rate 64 to 80, respirations 14 to 20, blood pressure 120 to 175 over 52 to 71. General: Chronically ill appearing, no acute distress. Cardiovascular: Regular rate and rhythm. No significant murmurs, rubs, or gallops. Pulmonary: Essentially clear to auscultation bilaterally. Adequate air movement. Abdomen: Soft, nontender, nondistended. Positive bowel sounds. Extremities: The patient is status post bilateral above- the-knee amputations. 1+ edema is present at bilateral stumps. Dermatologic: Evaluation reveals a large ecchymosis to the abdominal wall extending to his right groin and right flank. LABORATORY DATA: None. ASSESSMENT AND PLAN: 1. Rectus sheath hematoma: The patient's hemoglobin and hematocrit remain stable. Patient does appear to be resolving this, although slowly. Pain remains intermittent. We will continue as- needed Dilaudid. Aspirin has been resumed, but Plavix has not to date. At this point, we will hold off as he had significant pain yesterday. We will plan to resume Plavix as soon as deemed acceptable from a risk standpoint. 2. Syncopal episode: This was diagnosed while hospitalized, associated with an episode of hyperventilation. He has had no further episodes. 3. Dysphagia: The patient was noted to have profound dysphagia early in hospitalization. With time, patient has achieved improvement. At present time, percutaneous endoscopic gastrostomy tube does not appear to be imminent. We will continue diet as tolerated. 4. Acute exacerbation of chronic obstructive pulmonary disease: Patient continues to demonstrate improvement. He was transitioned to oral prednisone today. DuoNeb has been spaced to every 6 hours. We will continue to encourage incentive spirometry and aspiration precautions. 5. Bronchopneumonia: Patient is being treated with Zosyn and doxycycline therapy. Chest x-ray demonstrates improvement. We will continue aggressive intervention as noted. 6. Atrial fibrillation with rapid ventricular response: Patient was treated transiently with an amiodarone drip. Once he converted back to a sinus generated rhythm, his home medications were resumed. He is in a sinus-generated rhythm today. He is asymptomatic. 7. Coronary artery disease: Patient has extensive disease. He is treated with optimum medical management with the exception of holding his Plavix. He is asymptomatic at present time. As above, we will plan to resume Plavix once risks are acceptable. 8. Peripheral vascular disease: Patient has advanced disease. He is status post bilateral above- the-knee amputations. We will continue to optimize medical and nonmedical management. 9. Type 2 diabetes: The patient's blood sugars are trending downward with decreasing steroids. We will continue Lantus at bedtime and sliding scale insulin. 10. Hypertension: The patient's blood pressure remains labile. For now, we will continue his current regimen. We will consider titrating medications while hospitalized, if necessary. 11. Bullous pemphigoid: We will continue steroids and doxycycline therapy. 12. Hyperlipidemia: We will continue patient on atorvastatin therapy. 13. Hypothyroidism: We will continue patient on levothyroxine replacement. 14. Acute on chronic kidney disease: Patient's creatinine had improved to 1.2 at last lab draw. We will remain aware. We will plan to recheck labs in the morning as his intravenous fluids have been discontinued. 15. Leukocytosis: This was secondary to his acute illness as well as steroid intervention. As of last evaluation, white blood cell count was trending downward. We will follow. 16. Volume overload: As noted, intravenous fluids were discontinued yesterday. We will follow for now. 17. Disposition: At this point, patient continues to require [facility] care in a hospital setting. We will plan discharge to rehabilitation once appropriate. cc: Ty Forrest MD
--- NOTE | 2019-05-02 19:34 | GASTROENTEROLOGY PROGRESS NOTE ---
DATE: 05/02/2019 SUBJECTIVE: The patient was asleep at the time of my visit. He was in no acute distress. Per intake and output report, he has eaten 100% of his last 2 meals. Chest x-ray today showed resolution of pulmonary edema and interval improvement in infiltrates. OBJECTIVE: Vital Signs: Temperature 97.7 degrees, pulse 64, respirations 14, blood pressure 157/54. General: Patient was asleep, in no acute distress. LABORATORY: Hematology: WBC 9.9, hemoglobin 8.9, hematocrit 28.5, MCV 101.1, platelets 180. Chemistry: Sodium 138, potassium 4.4, chloride 107, CO2 21, BUN 46, creatinine 1.1, glucose 275, total bilirubin 0.36. AST 9, ALT 17, alkaline phosphatase 34. ASSESSMENT AND PLAN: 1. Rectus sheath hematoma. Continue symptomatic management. 2. Chronic obstructive pulmonary disease with exacerbation with improvement. 3. Dysphagia. Has improved, and he is currently tolerating his diet. Would recommend strict anti-reflux measures and strict aspiration precautions. 4. Deconditioning. The patient is working with physical therapy. PLAN: We will continue to follow. So far, he is tolerating a diet. His chest x-ray has improved. Further plans to be made according to his progress. I have discussed this case with Dr. Cruz. Dictated by KANDIS Wild for Aquiles Cruz MD cc: KANDIS Goddard MD Scott A. Matthews, MD
[2019-05-02] MEDS: LANTUS INSULIN SUBQ SCH (22:03)
[2019-05-02] MEDS: LIPITOR PO SCH (22:06)
[2019-05-03] MEDS: ZOSYN 3.375 GM in NS 50 ML IV SCH ×4 (02:50→22:16)
[2019-05-03] MEDS: DUONEB (A & A) INH SCH ×3 (03:50→16:40)
[2019-05-03] MEDS: PRILOSEC PO SCH (06:26)
[2019-05-03] MEDS: SYNTHROID PO SCH (06:26)
[2019-05-03 06:53] LABS: BASO# 0.01 X1000 (0.0-0.2); BASO% 0.1 % (0.0-0.8); EOS# 0.11 X1000 (0.0-0.7); EOS% 1.2 % (0.0-10.0); HEMATOCRIT 27.3 % (42.0-52.0); HEMOGLOBIN 8.5 g/dL (14.0-18.0); IMM GRAN# 0.09 X1000 (0.0-0.04); LYMPH# 0.76 X1000 (1.2-3.4); LYMPH% 8.5 % (20.5-51.1); MCH 31.5 PG (27-31); MCHC 31.1 g/dL (33-37); MCV 101.1 FL (81-99); MONO# 0.57 X1000 (0.11-0.59); MONO% 6.4 % (1.7-9.3); MPV 11.6 FL (7.4-10.4); NEUT# 7.35 X1000 (1.4-6.5); NEUT% 82.8 % (42.2-75.2); PLT 170 X1000 (130-400); RDW 14.9 % (11.5-14.5); WBC 8.89 X1000 (4.8-10.8)
[2019-05-03 07:16] LABS: ALB/GLOB RATIO 1.7; ALBUMIN 2.5 g/dL (3.5-5.0); CREATININE 1.5 mg/dL (0.7-1.2); POTASSIUM 3.8 mmol/L (3.5-5.1); TOTAL BILIRUBIN 0.41 mg/dL (0.20-1.00)
[2019-05-03] MEDS: HUMALOG SUBQ SCH ×4 (07:19→22:18)
[2019-05-03] MEDS: VITAMIN B-12 PO SCH (08:58)
[2019-05-03] MEDS: MYCOSTATIN SUSP PO SCH ×4 (08:58→22:18)
[2019-05-03] MEDS: WELLBUTRIN XL PO SCH (08:59)
[2019-05-03] MEDS: COZAAR PO SCH (08:59)
[2019-05-03] MEDS: FLOMAX PO SCH (09:00)
[2019-05-03] MEDS: IMDUR PO SCH (09:00)
[2019-05-03] MEDS ORDERED: PREDNISONE PO SCH (09:00)
[2019-05-03] MEDS: DOXYCYCLINE PO SCH ×2 (09:00→22:16)
[2019-05-03] MEDS: PERICOLACE PO SCH ×2 (09:00→22:18)
[2019-05-03] MEDS: ZEBETA PO SCH (09:01)
[2019-05-03] MEDS: NEURONTIN PO SCH ×2 (09:01→22:18)
[2019-05-03] MEDS: ASPIRIN PO SCH (09:01)
[2019-05-03] MEDS: FOLIC ACID PO SCH (09:03)
[2019-05-03] MEDS: NICODERM PATCH TD SCH (09:03)
[2019-05-03] MEDS: KLONOPIN PO SCH ×2 (09:03→22:16)
[2019-05-03] MEDS: MIRALAX PO SCH ×2 (09:04→22:15)
[2019-05-03] MEDS: KENALOG 0.1% CREAM TOP SCH ×3 (09:04→22:18)
--- NOTE | 2019-05-03 13:24 | GASTROENTEROLOGY PROGRESS NOTE ---
DATE: 05/03/2019 SUBJECTIVE: At the time of my visit, patient was sitting up in the bed. He was eating breakfast and tolerating it well. His main complaint is weakness and fatigue. He is working with physical therapy. He does also get out of bed to go to the bathroom and shower. OBJECTIVE: Vital Signs: Temperature 97.7 degrees, pulse 76, respirations 20, blood pressure 142/51. General: Patient is awake and alert, in no acute distress. Laboratory: Hematology: WBC 8.89, hemoglobin 8.5, hematocrit 27.3, MCV 101.1, platelets 170,000. Chemistry: Sodium 140, potassium 3.8, chloride 108, CO2 of 23, BUN 35, creatinine 1.5, glucose 105, calcium 8.0. Total bilirubin 0.41, AST 12, ALT 23, alkaline phosphatase 35. ASSESSMENT AND PLAN: 1. Rectus sheath hematoma. Hemoglobin and hematocrit are low but stable. We will continue to monitor. 2. Dysphagia has improved during hospitalization. He is currently tolerating his diet. Continue proton pump inhibitor. Continue strict antireflux measures and aspiration precautions. 3. Acute/chronic obstructive pulmonary disease. Continue current management. 4. Other medical problems are atrial fibrillation, coronary artery disease, history of bilateral amputations, diabetes, hypertension. Continue current management. Patient's dysphagia has improved. He is tolerating a diet. Continue current medications. We will continue to follow. Hopefully, he will be able to be discharged soon. Recommending followup with us as an outpatient. I have discussed this case with Dr. Cruz. Dictated by KANDIS Wild for Aquiles Cruz MD cc: KANDIS Goddard MD Scott A. Matthews, MD
--- NOTE | 2019-05-03 21:36 | ORTHOPAEDICS CONSULTATION ---
DATE: 05/03/2019 PRIMARY CARE PHYSICIAN: Dr. Forrest. REASON FOR CONSULTATION: Right shoulder pain. CHIEF COMPLAINT: Right shoulder pain. HISTORY OF PRESENT ILLNESS: Mr. Martinez is a 68-year-old male with a past medical history of ischemic heart disease, status post CABG, stents, peripheral artery disease, status post bilateral endarterectomy and subsequent bilateral AKAs, uncontrolled type 2 diabetes with neuropathy, COPD, right-sided heart failure, and a history of tonsillar squamous cell cancer. Apparently, he had started having a dry cough and had seen his oncologist, who placed him on Zithromax. Apparently the cough began becoming worse. He saw Dr. Forrest here in the ER. Apparently, at that time, he had several things going on and was admitted to the hospital for further evaluation and treatment. While he has been in the hospital, he has continued to have right-sided shoulder pain. He states this has been going on for several years. He has been getting injections from Dr. Day at [facility] in that right shoulder for several months. He states his last injection was 4 5 months ago. Orthopedics has been consulted for management of this right shoulder. PAST MEDICAL HISTORY: 1. Coronary artery disease, status post CABG. 2. Peripheral artery disease. 3. Uncontrolled type 2 diabetes. 4. Neuropathy. 5. Chronic obstructive pulmonary disease. 6. Right-sided congestive heart failure. 7. Tonsillar squamous cell cancer. ALLERGIES: 1. Crestor. 2. Amitriptyline. 3. Iron. 4. Metformin. 5. Neurontin. 6. Morphine. SURGICAL HISTORY: 1. Coronary artery bypass grafting. 2. Cardiac stents. 3. Bilateral AKAs. 4. Head and neck surgery. 5. Cataract surgery. SOCIAL HISTORY: He smokes a pack a day. He denies alcohol or illicit drug use. FAMILY HISTORY: Noncontributory. REVIEW OF SYSTEMS: A 10 point review of systems completed and negative except as mentioned in the HPI. PHYSICAL EXAMINATION: General: This is an 68-year-old male in no acute distress. Vital Signs: Temperature is 97.3 degrees, pulse 70, respirations 17, blood pressure 120/69, 100% on room air. Neurologically: He is alert and oriented x3. CV: Regular rate and rhythm. Pulmonary: Breathing is even and unlabored. Abdomen: Appears nondistended. Extremities: He does have bilateral AKAs. Both of those incisions are well healed. He does have altered sensation. Right upper extremity exam he has some tenderness to palpation over the AC joint. He does have decreased range of motion related to pain. His hand intrinsics are intact. He has a 1+ radial pulse. IMAGING: No recent shoulder films. ASSESSMENT: Chronic right shoulder pain. PLAN: The plan is for Mr. Martinez to go to a [facility]. So, since it has been about 4 or 5 months since he has had that shoulder injection, we are going to plan on doing an 80 mg Depo- Medrol solution with Marcaine and lidocaine into the shoulder. We will plan on doing this tomorrow morning. We discussed this with the patient, and he wished to proceed with that. That way, he will not have to try and leave the fci and come as an outpatient. So, we will get this done for him. Thank you for the consultation. Any questions or concerns, please call the office. Dictated by KANDIS Monterroso for Minor Trevino MD cc: KANDIS Monterroso MD Scott A. Matthews, MD
--- NOTE | 2019-05-03 21:39 | PROGRESS NOTE ---
DATE: 05/03/2019 SUBJECTIVE: Upon my arrival this morning, patient was sitting upright in his bed. He was eating breakfast without significant problems. Throughout the day today, patient continued to demonstrate improvement. The patient's pain has been controlled. His pulmonary status continues to slowly improve. This evening, patient is again sitting upright. Patient denies fevers, chills, nausea, vomiting, shortness of breath, or chest discomfort. OBJECTIVE: T-max 97.6 degrees, heart rate 70 to 81, respirations 17 to 22, blood pressure 105 to 144 over 44 to 69.General: Chronically ill appearing, no acute distress. Cardiovascular: Regular rate and rhythm. No significant murmurs, rubs, or gallops. Pulmonary: Clear to auscultation bilaterally. Adequate air movement. Abdomen: Soft, superficial tenderness associated with his large ecchymosis/hematoma. No deep tenderness to palpation or rebound. Positive bowel sounds. Extremities: The patient is status post bilateral [id number] amputations. No significant edema is present. Dermatologic: Evaluation reveals a resolving hematoma/ecchymosis to the abdominal wall extending to his right flank and right lumbar spine. LABORATORY DATA: White blood cell count 8.89, hemoglobin 8.5, hematocrit 27.3, platelet counts 170,000, sodium 140, potassium 3.8, chloride 108, bicarb 23, BUN 35, creatinine 1.5, glucose 105, calcium 8.0, total bilirubin 0.41, total protein 4.0, albumin 2.5, alkaline phosphatase 35, AST 12, ALT 23. ASSESSMENT AND PLAN: 1. Rectus sheath hematoma-patient's hemoglobin and hematocrit remain stable. Pain is improving. We will continue aspirin therapy. We will plan to resume Plavix at time of discharge. 2. Syncopal episode - this likely was associated with an episode of hyperventilation. He has had no further episodes while hospitalized. 3. Dysphagia-patient has longstanding disease associated with posterior pharyngeal radiation. At present time, patient is maintaining adequate nutrition. We will continue to follow clinically. 4. Acute exacerbation of chronic obstructive pulmonary disease-the patient's pulmonary status continues to be adequately controlled with antibiotics, bronchodilators, and steroids. We will continue his slow steroid taper. 5. Bronchopneumonia-we will continue patient on Zosyn and doxycycline therapy. As above, symptoms continued to improve. 6. Atrial fibrillation with rapid ventricular response-the patient has achieved resolution with amiodarone therapy. He remains in a sinus-generated rhythm. 7. Coronary artery disease-patient is treated with optimum medical and nonmedical management with the exception of Plavix therapy. As above, we will resume this at time of discharge. We will remain aware. He does have extensive disease. 8. Peripheral vascular disease-once again, patient has extensive disease. We will continue his optimized medical and nonmedical management. 9. Type 2 diabetes-blood sugars are trending downward with decreasing steroids. We will continue Lantus at bedtime and sliding scale insulin. 10. Hypertension - The patient's blood pressure is reasonably controlled on his current regimen. 11. Bullous pemphigoid-the patient is treated with steroids and doxycycline therapy. We will titrate patient down to 20 mg of prednisone daily for his COPD. Thereafter, he will continue 20 mg of prednisone for his bullous pemphigoid. 12. Hyperlipidemia-we will continue atorvastatin therapy. 13. Hypothyroidism-we will continue patient on levothyroxine replacement. 14. Acute on chronic kidney disease-the patient's creatinine has increased slightly to 1.5. We will encourage p.o. intake. 15. Volume overload-the patient's volume status has improved slightly from yesterday. At that time, we discontinued IV fluids. We will continue to follow clinically. DISPOSITION: At this point, patient continues to require [facility] care in a hospital setting. We will plan discharge to rehabilitation once appropriate. cc: Ty Forrest MD
[2019-05-03] MEDS: LIPITOR PO SCH (22:18)
[2019-05-03] MEDS: NORCO-7.5 PO PRN (22:27)
[2019-05-04] MEDS: ATIVAN IV PRN (00:28)
[2019-05-04] MEDS: ZOSYN 3.375 GM in NS 50 ML IV SCH ×2 (03:20→09:02)
[2019-05-04] MEDS: DUONEB (A & A) INH SCH ×3 (03:55→11:10)
[2019-05-04] MEDS: SYNTHROID PO SCH (06:18)
[2019-05-04] MEDS: PRILOSEC PO SCH (06:18)
[2019-05-04] MEDS: HUMALOG SUBQ SCH ×2 (06:18→10:58)
[2019-05-04 06:44] LABS: EOS# 0.08 X1000 (0.0-0.7); EOS% 0.8 % (0.0-10.0); HEMATOCRIT 28.2 % (42.0-52.0); IMM GRAN# 0.06 X1000 (0.0-0.04); IMM GRAN% 0.6 % (0.0-0.5); LYMPH% 3.8 % (20.5-51.1); MCH 31.8 PG (27-31); MCHC 31.9 g/dL (33-37); MCV 99.6 FL (81-99); MONO# 0.73 X1000 (0.11-0.59); MONO% 6.9 % (1.7-9.3); MPV 11.6 FL (7.4-10.4); NEUT# 9.29 X1000 (1.4-6.5); NEUT% 87.9 % (42.2-75.2); PLT 172 X1000 (130-400); RBC 2.83 XMIL (4.7-6.1); RDW 14.8 % (11.5-14.5); WBC 10.56 X1000 (4.8-10.8)
[2019-05-04 07:17] LABS: ALB/GLOB RATIO 1.2; ALBUMIN 2.6 g/dL (3.5-5.0); CALCIUM 7.9 mg/dL (8.8-10.2); CREATININE 1.2 mg/dL (0.7-1.2); POTASSIUM 3.4 mmol/L (3.5-5.1); TOTAL BILIRUBIN 0.48 mg/dL (0.20-1.00); TOTAL PROTEIN 4.7 g/dL (6.3-8.3)
[2019-05-04] MEDS ORDERED: PREDNISONE PO SCH (09:00)
[2019-05-04] MEDS: KENALOG 0.1% CREAM TOP SCH (09:02)
[2019-05-04] MEDS: FLOMAX PO SCH (09:03)
[2019-05-04] MEDS: NICODERM PATCH TD SCH (09:03)
[2019-05-04] MEDS: FOLIC ACID PO SCH (09:03)
[2019-05-04] MEDS: NEURONTIN PO SCH (09:03)
[2019-05-04] MEDS: MIRALAX PO SCH (09:03)
[2019-05-04] MEDS: KLONOPIN PO SCH (09:04)
[2019-05-04] MEDS: COZAAR PO SCH (09:04)
[2019-05-04] MEDS: ASPIRIN PO SCH (09:04)
[2019-05-04] MEDS: IMDUR PO SCH (09:04)
[2019-05-04] MEDS: DOXYCYCLINE PO SCH (09:04)
[2019-05-04] MEDS: WELLBUTRIN XL PO SCH (09:04)
[2019-05-04] MEDS: VITAMIN B-12 PO SCH (09:04)
[2019-05-04] MEDS: PERICOLACE PO SCH (09:04)
[2019-05-04] MEDS: MYCOSTATIN SUSP PO SCH (09:05)
[2019-05-04] MEDS: ZEBETA PO SCH (09:13)
[2019-05-04] MEDS ORDERED: KLOR-CON PO ONE (10:16)
[2019-05-04 11:58] VITALS: BP 134/49
--- NOTE | 2019-05-04 12:18 | DISCHARGE SUMMARY ---
ADMISSION DATE: 04/18/2019 DISCHARGE DATE: 05/04/2019 ADMISSION DIAGNOSIS: Abdominal pain. DISCHARGE DIAGNOSES: 1. Rectus sheath hematoma, improving. 2. In-hospital syncopal episode secondary to hyperventilation without recurrence. 3. Profound dysphagia secondary to previous radiation, improving. 4. Acute exacerbation of chronic obstructive pulmonary disease, improving. 5. Bronchopneumonia, improving. 6. Atrial fibrillation with rapid ventricular response, resolved. 7. Psqbu-vn-swpytgs kidney disease, improved. 8. Coronary artery disease, present on arrival. 9. Peripheral vascular disease, present on arrival. 10. Type 2 diabetes, present on arrival. 11. Hypertension, present on arrival. 12. Bullous pemphigoid, present on arrival. 13. Hyperlipidemia, present on arrival. 14. Hypothyroidism, present on arrival. CONSULTATIONS: 1. Asuncion Sanders MD with General Surgery was consulted for further evaluation and management of a large rectus sheath hematoma. 2. Nick Forbes MD with Cardiology was consulted for further evaluation and management of atrial fibrillation with rapid ventricular response. 3. Aquiles Cruz MD with Gastroenterology was consulted for further evaluation and management of dysphagia. PROCEDURES: 1. A CT scan of the chest, abdomen, and pelvis was performed on 04/19/2019, which revealed a large right rectus muscle hematoma with acute extravasation, constipation, renal cysts, severe atherosclerosis, mild fatty infiltration of the liver. 2. A CT scan of the head and neck was performed on 04/18/2019, which revealed mild chronic- appearing changes of the brain, which were described as stable, no definite acute intracranial pathology per CT. Asymmetric thickening of the right side of the digestive tract mainly involving the region of the lingual tonsil on the left and effacing the left vallecula, stable. 3. Multiple chest x-rays were performed while hospitalized, last on 05/02/2019, which revealed resolution of the pulmonary edema. Interval improvement of the infiltrates. HISTORY AND PHYSICAL EXAMINATION: See admit note. PHYSICAL EXAMINATION PRIOR TO DISCHARGE: Vital signs: Temperature 98.2 degrees, heart rate 68, respirations 12 blood pressure is 150/46. General: Chronically ill-appearing, no acute distress. Cardiovascular: Regular rate and rhythm. No significant murmurs, rubs, or gallops. Pulmonary: Clear to auscultation bilaterally. Abdomen: Superficial tenderness secondary to his large rectus sheath hematoma. No deep tenderness, guarding, or rebound. Positive bowel sounds. Extremities: The patient is status post bilateral [id number]-[id number] amputations. No significant edema of the lower extremity stump is identified. Dermatologic: Evaluation reveals multiple areas of bulla consistent with his bullous pemphigoid. LABORATORY DATA: Prior to discharge, white blood cell count 10.56, hemoglobin 9.0, hematocrit 28.2, platelet count 172,000. Sodium 140, potassium 3.4, chloride 108, bicarbonate 23, BUN 31, creatinine 1.2, glucose 166, calcium 7.9, total bilirubin 0.48, total protein 4.7, albumin 2.6, alkaline phosphatase 41, AST 18, ALT 30. HOSPITAL COURSE: The patient was admitted as per history and physical examination. Hospital course per condition is as follows: 1. Rectus sheath hematoma-upon admission, patient was noted to have excruciating pain associated with his large rectus sheath hematoma as described per CT scan. Dr. Sanders was consulted, but surgical intervention was not felt necessary. The patient's aspirin and Plavix were held. Patient required significant amount of pain medication management including as-needed Dilaudid. With time, the pain improved. His hemoglobin and hematocrit dropped initially, but stabilized. When he converted into atrial fibrillation, Cardiology recommended resuming aspirin. He tolerated this well. At time of discharge, we will resume his Plavix as well. He continues to require as needed [place] for pain. He understands the risk of long-term use and is attempting to decrease his needs. 2. Syncopal episode-while hospitalized, patient had a syncopal episode. This occurred in the setting of aspiration and associated hyperventilation. With supportive care, patient achieved resolution. A CT scan of the head revealed no evidence of acute abnormality. With time, patient's mentation returned to his baseline. He did not experience a repeat episode while hospitalized. With improvement in his dysphagia symptoms, he has had no further episodes of hyperventilation. 3. Dysphagia-unfortunately, he has longstanding disease secondary to his posterior pharyngeal radiation. He has required a PEG tube in the past. While hospitalized, he did have several days with minimal p.o. intake secondary to pain, odynophagia, and dysphagia. Dr. Cruz was consulted. The possibility of PEG tube placement was addressed. With time, however, his symptoms improved. At time of discharge, he was tolerating a mechanical soft diet. The patient understands the risk associated with aspiration. He, at present time, is maintaining adequate hydration and p.o. intake. I would encourage to add Glucerna as needed to maintain adequate caloric intake. 4. Acute exacerbation of chronic obstructive pulmonary disease-upon admission, patient was noted to have significant wheezing and rhonchi throughout bilateral lung arzate. The patient has been treated with antibiotics, bronchodilators, and steroids while hospitalized. The patient's last chest x-ray suggested near resolution of his underlying bronchopneumonia as described below. The patient will be discharged to rehabilitation with a steroid taper tapering down to 20 mg daily. This will need to be continued thereafter, not for his COPD, but for his bullous pemphigoid. He will continue doxycycline for the bullous pemphigoid as well. Five additional days of Augmentin have been prescribed. He will continue bronchodilators as well. 5. Bronchopneumonia-as above, patient was treated aggressively with Zosyn and doxycycline therapy. With time, symptoms improved. The patient is at high risk for aspiration. We will encourage aspiration precaution while in rehabilitation. We will complete 5 additional days of Augmentin therapy. We will continue doxycycline for his underlying bullous pemphigoid. 6. Atrial fibrillation with rapid ventricular response-patient was diagnosed while hospitalized. He was treated with an amiodarone drip transiently per Dr. Forbes. The patient subsequently converted back to a sinus-generated rhythm and has maintained since that time. We will continue patient on his home medical regimen. This will need to be followed as well. 7. Coronary artery disease-Patient has extensive disease. There was no evidence of ischemic changes while hospitalized. He was treated with optimized medical management with exception of his aspirin and Plavix while hospitalized. As above, aspirin was resumed midway through hospitalization. We will resume Plavix at discharge. This will need to be followed as well. 8. Peripheral vascular disease-patient has extensive disease. He is treated with optimized medical and nonmedical management. This will be continued as an outpatient. 9. Type 2 diabetes-as an outpatient, patient was being treated with Lantus 20 units twice daily as well as sliding scale insulin. Interestingly, with the addition of steroids, he still had episodes of hypoglycemia. I have decreased his Lantus to 10 units at bedtime. We will continue sliding scale insulin with meals. Further titration may be necessary as an outpatient as his p.o. intake improves. 10. Hypertension-the patient's blood pressure has been quite labile while hospitalized. He was continued on his home medical regimen with exception of amlodipine. The patient's systolic is ranging between 120 and 150 at this time. I am hesitant to resume his amlodipine currently. With time and improved p.o. intake, 5 mg daily may need to be resumed. We will defer management to rehabilitation. 11. Bullous pemphigoid-the patient was being treated with prednisone and doxycycline per Dr. Padron as an outpatient. This was continued while hospitalized. We will titrate patient back to his previous 20 mg dosage of prednisone. We will continue doxycycline. He has developed some recurrence of lesions while hospitalized. Should this continue to progress, further dermatologic consultation may be warranted. 12. Hyperlipidemia-patient was continued on atorvastatin therapy while hospitalized. This will be continued. 13. Hypothyroidism-patient was continued on levothyroxine replacement while hospitalized. Once again, this will be followed. 14. Vjnhx-bz-mkoawhz kidney disease-patient's creatinine increased while hospitalized secondary to decreasing p.o. intake. At time of discharge, creatinine was back to baseline at 1.2. 15. Volume overload-with volume resuscitation, patient experienced a moderate volume overload status. Since discontinuing volume resuscitation, his volume status is approaching baseline. We will continue his optimized home medical regimen. DISCHARGE CONDITION: Stable. DISPOSITION: Discharge to rehabilitation. MEDICATIONS: 1. Albuterol and Atrovent nebulizer every 6 hours and as needed. 2. Aspirin 81 mg daily. 3. Atorvastatin 40 mg at bedtime. 4. Wellbutrin XL 450 mg daily. 5. Clonazepam 0.25 mg twice daily. 6. Vitamin B12 1000 mcg daily. 7. Doxycycline 100 mg twice daily. 8. Folic acid 1 mg daily. 9. Gabapentin 100 mg in the morning and 300 mg in the evening. 10. [place] 7.5/325 1 to 2 tablets every 4 hours as needed. 11. Lantus insulin 10 units at bedtime. 12. Imdur 30 mg daily. 13. Levothyroxine 50 mcg daily. 14. Losartan 25 mg daily. 15. NicoDerm patch 7 mg daily. 16. Nystatin swish and swallow 5 mL 4 times daily for the next 5 to 7 days. 17. Omeprazole 20 mg daily. 18. Chloraseptic spray as needed. 19. MiraLAX 17 g in 8 ounces of juice twice daily, hold for loose stools. 20. Prednisone 30 mg for 2 days followed by 25 mg for 2 days followed by 20 mg daily thereafter. 21. Kristen-Colace 1 tablet twice daily, hold for loose stools. 22. Tamsulosin 0.4 mg daily. 23. Triamcinolone cream 3 times daily as needed to his bullous lesions. 24. Augmentin 875/125 every 12 hours for 5 days. 25. Plavix 75 mg daily. 26. Sliding scale insulin with meals. 27. Imdur 30 mg daily. 28. Metoprolol ER 50 mg daily. FOLLOWUP: 1. The patient is to follow up with Dr. Ty Forrest upon discharge from rehabilitation. 2. The patient is to follow up with Dr. Cruz as arranged. 3. The patient is a DO NOT RESUSCITATE. cc: Ty Forrest MD
--- NOTE | 2019-05-04 15:41 | ORTHOPAEDICS PROGRESS NOTE ---
DATE: 05/04/2019 SUBJECTIVE: Mr. Martinez is sitting up eating breakfast. He is still complaining of right shoulder pain. OBJECTIVE: He still has tenderness to palpation, mostly over the AC joint. He does have some trouble with overhead range of motion. His hand intrinsics are intact. ASSESSMENT: Right shoulder pain. PLAN: We are going to proceed with a Depo-Medrol injection today. I discussed with the patient and he wished to proceed. After verbal consent was obtained, the skin was prepped and allowed to air dry with alcohol. A 22-gauge needle was used to access the shoulder. An 80 mg solution of Depo-Medrol, Marcaine, lidocaine was then injected. Patient tolerated the procedure well. There were no complications. He has been instructed to follow up with the office as an outpatient. Dictated by KANDIS Monterroso for Minor Trevino MD cc: KANDIS Monterroso MD Scott A. Matthews, MD
--- NOTE | 2019-05-04 18:50 | GASTROENTEROLOGY PROGRESS NOTE ---
DATE: 05/04/2019 SUBJECTIVE: The patient was awake and alert. He was sitting up in the bed. He states he will be transferring to [facility]. He unfortunately states he fell when he went to the bathroom last night. He denies any injuries. Otherwise no complaints regarding the fall. OBJECTIVE: Vital signs: Temperature 98.2 degrees, pulse 68, respirations 12, blood pressure 150/46. General: The patient is awake and alert, in no acute distress. LABORATORY DATA: Hematology: WBC 10.56, hemoglobin 9.0, hematocrit 28.2. Chemistry: Sodium 140, potassium 3.4, chloride 108, CO2 is 23, BUN 31, creatinine 1.2, glucose 166. ASSESSMENT AND PLAN: 1. Rectus sheath hematoma, improving. 2. Dysphagia has improved. He is tolerating a diet. 3. Chronic obstructive pulmonary disease. 4. Atrial fibrillation. 5. Coronary artery disease. 6. Peripheral vascular disease. 7. Type 2 diabetes. 8. History of jkyqk-[id number]-vfhh amputations. 9. Continue current management. I believe he will be transferred to rehabilitation. His dysphagia has currently improved. Recommend for him to follow strict antireflux measures and aspiration precautions. Follow up with us as an outpatient as needed. I have discussed this case with Dr. Cruz. Dictated by KANDIS Wild for Aquiles Cruz MD cc: KANDIS Goddard MD Scott A. Matthews, MD
[2019-05-04] MEDS ORDERED: LANTUS INSULIN SUBQ SCH (21:00)
== END 2019-05-04 13:05 | DRG 555 ==
LOC: ED 21:40 → 4N 04-19 02:46 → ICU 04-24 14:59 → 2N 04-29 18:26
PROVIDERS: ADMIT Internal Medicine; ATTEND Internal Medicine